=== PATIENT | female | born 1945 | race Caucasian/White ===

== ENCOUNTER 2024-02-03 10:40 | Emergency (ER) | payer MEDICARE, OTHER, SELFPAY ==
[2024-02-03 10:45] VITALS: BP 220/112; PULSE 65; RESP 16; TEMP 36.2; O2SAT 98; BMI 23.3
--- NOTE | 2024-02-03 11:42 | ED_ITS ---
HPI - General Adult General Chief complaint: Hypertension Stated complaint: High BP, dark spot under R eye Time Seen by Provider: 02/03/24 11:09 History of Present Illness HPI narrative: This 78-year-old female comes in with concern about elevated blood pressure. She is on 3 antihypertensive medications and her atenolol was increased 4 5 months ago but she began taking the increased dose just a couple months ago. Despite that she has had more elevated blood pressure in the 150-160 range for systolic value. She comes into the ER today because she awoke with some anxiety last night and noted that she had some bruising below her right eye. She does not report any injury event and is not on any anticoagulants. She does not have any other complaints. She did move from [facility] here about 4 5 months ago and she states that her stress level has increased and she thinks this may be part of why her blood pressure has been more elevated. She does not report any chest pain or and. She does have sinus symptoms that are chronic and allergy related. Related Data Home Medications Medication Instructions Recorded Confirmed atenolol 50 mg tablet 50 mg PO DAILY 02/03/24 02/03/24 hydrochlorothiazide 02/03/24 levothyroxine 75 mcg tablet 75 mcg PO DAILY 02/03/24 02/03/24 (Euthyrox) lisinopril 20 mg tablet 10 mg PO DAILY 02/03/24 02/03/24 loratadine 10 mg tablet (Claritin) 10 mg PO DAILY 02/03/24 02/03/24 omeprazole 40 mg capsule,delayed 40 mg PO DAILY 02/03/24 02/03/24 release Previous Rx's Medication Instructions Recorded amlodipine 10 mg tablet 10 mg PO DAILY #30 tabs 02/03/24 methylprednisolone 4 mg tablets in See Rx Instructions PO .COMPLEX 02/03/24 a dose pack (Medrol (Jalen)) #21 ea Allergies Allergy/AdvReac Type Severity Reaction Status Date / Time No Known Drug Allergies Allergy Verified 02/03/24 10:55 Review of Systems Status of ROS: Reports: 10 or more systems reviewed and unremarkable except as noted in History and below Narrative: Constitutional: No fevers, no weight gain or loss. Eyes: No discharge. No vision changes. HENT: No congestion, no sore throat, no ear pain. Cardiovascular: No chest pain, no palpitations. Respiratory: No shortness of breath, no wheezes, no cough. Gastrointestinal: No abdominal pain, no vomiting, no diarrhea. Genitourinary: No dysuria, no hematuria. Musculoskeletal: Normal range of motion. Skin: No rashes, no pruritis. Neurological: No dizziness, weakness, sensory change, speech change. Endo/Heme/Allergies: No bruising or bleeding. No polydipsia. Pysch: no suicidality, no anxiety, no insomnia. All other systems reviewed and are negative. PFSH PFSH Social History Smoking Status: Never smoker How often do you have a drink containing alcohol: never AUDIT-C Alcohol total score: 0 Non-prescribed substance use: denies use Exam Narrative: Exam Narrative: Constitutional: Well-developed, well-nourished, no acute distress. HEENT: Normocephalic. Small bruising below the right eye with no sign of abrasion or laceration. Neck: Normal range of motion. Nontender. Supple. Heart: Regular. No murmurs. Normal rate. Intact distal pulses. Lungs: Clear to auscultation. No chest discomfort. No wheezes, rhonchi, or rales. Abdomen: Normal bowel sounds. Nontender. No rebound tenderness. Genitalia: Deferred. Back: No midline tenderness. Normal range of motion. Extremities: Normal range of motion. No injury. Skin: Intact. No rash. Warm. No erythema or pallor. Neurologic: No altered sensation. No weakness. Alert and oriented. Psychiatric: No suicidality. No anxiety or depression. No insomnia. Nursing notes and vitals signs are reviewed. Const: Vital Signs, click to edit/add: Vital Signs - 24 hr 02/03/24 10:45 Temperature 97.2 F L Pulse Rate [Pulse Oximeter] 65 Respiratory Rate 16 Blood Pressure [Ri ght Upper Arm] 220/112 H Pulse Oximetry 98 Oxygen Delivery Me thod Room Air Course Vital Signs Vital signs: Initial Vital Signs Temperature 97.2 F L 02/03/24 10:45 Temperature Source Temporal Artery Scan 02/03/24 10:45 Pulse Rate 65 02/03/24 10:45 Respiratory Rate 16 02/03/24 10:45 Blood Pressure 220/112 H 02/03/24 10:45 Blood Pressure Mean 148 H 02/03/24 10:45 Blood Pressure Position Supine 02/03/24 10:45 Pulse Oximetry 98 02/03/24 10:45 Oxygen Delivery Method Room Air 02/03/24 10:45 Vital Signs Temperature 97.2 F L 02/03/24 10:45 Pulse Rate 65 02/03/24 10:45 Respiratory Rate 16 02/03/24 10:45 Blood Pressure 220/112 H 02/03/24 10:45 Pulse Oximetry 98 02/03/24 10:45 Oxygen Delivery Method Room Air 02/03/24 10:45 Temperature 97.2 F L 02/03/24 10:45 Pulse Rate 65 02/03/24 10:45 Respiratory Rate 16 02/03/24 10:45 Blood Pressure 220/112 H 02/03/24 10:45 Pulse Oximetry 98 02/03/24 10:45 Oxygen Delivery Method Room Air 02/03/24 10:45 Medical Decision Making MDM Narrative Medical decision making narrative: The primary reason for this patient's visit was her blood pressure readings which have been somewhat elevated over the past several months. She also has some chronic sinus symptoms. I did discuss lab and imaging options with the patient but indicated blood pressure is best evaluated by simply checking it is results with evidence acquired over more than a couple weeks when a person feels normal. She does have persistently elevated blood pressure over the past several months by her report. I did review her current medications and recommended adding Norvasc. I did state that blood pressure is best managed by her primary physician and we typically do not step in in manage or prescribed blood pressure medicines here. The patient did receive of the starting dose of Norvasc and will follow up with her primary physician. I also provided a prescription for Medrol Dosepak and recommended over the counter use of nasal steroid sprays and antihistamines for sinus symptoms. Discharge Plan Discharge Clinical Impression: Hypertension, Chronic sinusitis Patient Disposition: Home, Self-Care Condition: Stable Additional Instructions: Take medication as prescribed. Follow up with MD or return if worsening symptoms happen. Prescriptions: New methylprednisolone [Medrol (Jalen)] 4 mg tablets,dose pack See Rx Instructions .ROUTE .COMPLEX Qty: 21 0RF Rx Instructions: orally per package directions amlodipine 10 mg tablet 10 mg PO DAILY Qty: 30 2RF No Action atenolol 50 mg tablet 50 mg PO DAILY lisinopril 20 mg tablet 10 mg PO DAILY hydrochlorothiazide loratadine [Claritin] 10 mg tablet 10 mg PO DAILY levothyroxine [Euthyrox] 75 mcg tablet 75 mcg PO DAILY omeprazole 40 mg capsule,delayed release(DR/EC) 40 mg PO DAILY Stand Alone Forms: [employer] Info Instructions
== END 2024-02-03 12:00 | disposition home or self-care (01) ==
PROVIDERS: Emergency Provider Emergency Medicine Emergency Medical Services; PCP Family Medicine
DX: I10 Essential (primary) hypertension (principal); J32.9 Chronic sinusitis, unspecified
CPT/HCPCS: 99284

== ENCOUNTER 2024-10-18 19:29 | Inpatient (IN) | payer MEDICARE, OTHER, SELFPAY ==
[2024-10-18] VITALS (11 sets, daily range): BP systolic 155–179; BP diastolic 104–115; PULSE 76–85; RESP 16–18; TEMP 36.5–36.6; O2SAT 94–98; BMI 22.4; BMI 22.8
--- NOTE | 2024-10-18 19:55 | ED_ITS ---
HPI - General Adult General Time Seen by Provider: 19:55 Date Seen: 10/18/24 Chief complaint: Nausea/Vomiting Stated complaint: Covid+, vomiting, lethargy Time Seen by Provider: 10/18/24 19:51 Source: patient, family and RN notes reviewed Mode of arrival: ambulatory Limitations: no limitations History of Present Illness HPI narrative: This patient is ambulatory into the ED in presents with her spouse with concern of vomiting. He states in all is years of marriage she has never seen her vomit. She has had nausea and vomiting today, had about 5 episodes of vomiting per his report. She denies any abdominal pain. She has had no diarrhea. Her was sick with an upper respiratory illness starting Wednesday about 9 days ago. Patient started with some upper respiratory symptoms on Wednesday night or morning. She is just been extremely tired and weak, sleeping most of the time. She is still coughing but no chest pain or shortness of breath. She has no abdominal pain. Nausea and vomiting started today. She really has not been taking in much as far as orals, appetite has been really diminished and not eating. They both tested for COVID on Wednesday and both were positive. She had a tele health visit with a physician at [place] on Wednesday. Due to the length of her symptoms, her blood pressure medicines, was decided that she should not start Paxlovid. Her has recovered, he is concerned that she is not feeling better yet. They have both had COVID vaccinations. Neither has had COVID prior to this that they are aware of. Related Data Home Medications ?Medication ?Instructions ?Recorded ?Confirmed atenolol 50 mg tablet 50 mg PO DAILY 02/03/24 10/18/24 hydrochlorothiazide 02/03/24 levothyroxine 75 mcg tablet 75 mcg PO DAILY 02/03/24 10/18/24 (Euthyrox) lisinopril 20 mg tablet 10 mg PO DAILY 02/03/24 10/18/24 loratadine 10 mg tablet (Claritin) 10 mg PO DAILY 02/03/24 10/18/24 omeprazole 40 mg capsule,delayed 40 mg PO DAILY 02/03/24 10/18/24 release Previous Rx's ?Medication ?Instructions ?Recorded amlodipine 10 mg tablet 10 mg PO DAILY #30 tabs 02/03/24 Allergies Allergy/AdvReac Type Severity Reaction Status Date / Time No Known Drug Allergies Allergy Verified 10/18/24 19:50 Review of Systems Status of ROS: Reports: 6 or more systems reviewed and unremarkable except as noted in History and below PFS PFS Social History Smoking Status: Never smoker Do you use any of these nicotine containing products: None Second hand tobacco smoke exposure: No How often do you have a drink containing alcohol: never AUDIT-C Alcohol total score: 0 Non-prescribed substance use: denies use Exam Const: Vital Signs, click to edit/add: Vital Signs - 24 hr 10/18/24 19:42 10/18/24 19:55 10/18/24 20:00 Temperature 97.7 F Pulse Rate 83 81 Pulse Rate [Pulse Oximeter] 85 Respiratory Rate 16 Blood Pressure Blood Pressure [Ri ght Upper Arm] 176/111 H Pulse Oximetry 94 95 95 Oxygen Delivery Me thod Room Air Room Air 10/18/24 20:03 10/18/24 20:03 10/18/24 20:15 Temperature Pulse Rate 76 85 Pulse Rate [Pulse Oximeter] Respiratory Rate Blood Pressure 155/115 H Blood Pressure [Ri ght Upper Arm] Pulse Oximetry 94 94 95 Oxygen Delivery Me thod 10/18/24 20:32 10/18/24 21:02 Temperature Pulse Rate Pulse Rate [Pulse Oximeter] Respiratory Rate Blood Pressure 178/107 H 179/104 H Blood Pressure [Ri ght Upper Arm] Pulse Oximetry Oxygen Delivery Me thod This 79-year-old female is alert, interactive, no apparent distress. She is lying in the bed in exam room 1. She looks like she does not feel well but is able to speak in complete sentences, no tachypnea. She is oxygenating 96-97% when I am in with her with a good waveform. Sclera clear, conjugate gaze. Mask was taken down, lips are normal, not cracked or dry, tongue is maybe slightly dry but still has some wished her to the mucous membranes. Neck is supple, no adenopathy or masses. She is able to sit up, lungs are clear, good air entry, no wheezing or crackles. CV regular rate and rhythm, no murmur, normal S1-S2. Abdomen is absolutely soft, nondistended, nontender, no organomegaly. Bowel sounds are heard but overall seem mildly distant. She absolutely has no abdominal tenderness on evaluation. Documenting provider has reviewed patient's vital signs: yes Course Course ED Course: Discussed with patient and her that COVID certainly can have GI symptoms. She may have a little prolonged course or more active course as she potentially is not had COVID before. She has no abdominal pain in do think the nausea and vomiting reflect COVID infection. She is not hypoxic, does not require steroids. We will start some normal saline, give her 4 mg IV Zofran to see how she tolerates this. Will get a portable chest x-ray to ensure that there is no evidence of any COVID pneumonia developing. I do not think she requires abdominal imaging nor is it indicated given her benign examination. Will get labs and electrolytes just to ensure stability. It is possible she could go home with oral Zofran to watch over the next day or 2. Will see where her electrolytes are and how she does while she is here. Reevaluation(s) Time of Reevaluation #1: 20:58 Reevaluation #1: Contacted lab as the lactate was technically in without any value. She had critical levels of her sodium and potassium and thus lactate will not register per the machine. Her prelim sodium is 114 and potassium is 2.7. I have ordered cardiac monitoring, EKG, lab add on for magnesium. She did receive 500 mL normal saline, will order some IV potassium. Will talk to our hospitalist. I see she is on hydrochlorothiazide and she is probably had ongoing losses from the hydrochlorothiazide with poor oral intake and than subsequent losses with her vomiting today. Time of Reevaluation #2: 21:12 Reevaluation #2: Did review with patient and her the low potassium and sodium. She is being hooked up to the dope and fabric worker, I do have her EKG. She actually on further discussion has only thrown up twice, not 5 times, IA believe he said 5 times but maybe he was talking about being ill for 5 days. She actually has only thrown up twice. She definitely has had poor oral intake and basically has been only taking in fluids with water. We discussed that that does not replace electrolytes, she has been taking her hydrochlorothiazide. She did ask if I would look at her right ear, has been bothering her through this, feels full. She has some fluid but no active evidence of otitis media at this time. We did discuss if she has increasing pain in the ear, to let someone know so that they can look at it again. Consultations Consultation #1: Have spoken with the hospitalist Dr. Winters. Patient will go in the unit due to her low sodium. Did report that I have not ordered IV potassium, she stated she would take care of all of that and is ready to accept the patient. We will make her admission per her recommendation. Need to update patient and her . Time: 21:10 Vital Signs Vital signs: Initial Vital Signs Temperature 97.7 F 10/18/24 19:42 Temperature Source Temporal Artery Scan 10/18/24 19:42 Pulse Rate 85 10/18/24 19:42 Respiratory Rate 16 10/18/24 19:42 Blood Pressure 176/111 H 10/18/24 19:42 Blood Pressure Mean 132 H 10/18/24 19:42 Blood Pressure Position Supine 10/18/24 19:42 Pulse Oximetry 94 10/18/24 19:42 Oxygen Delivery Method Room Air 10/18/24 19:42 Vital Signs Temperature 97.7 F 10/18/24 19:42 Pulse Rate 85 10/18/24 19:42 Respiratory Rate 16 10/18/24 19:42 Blood Pressure 176/111 H 10/18/24 19:42 Pulse Oximetry 94 10/18/24 19:42 Oxygen Delivery Method Room Air 10/18/24 19:42 Temperature 97.7 F 10/18/24 19:42 Pulse Rate 85 10/18/24 20:15 Respiratory Rate 16 10/18/24 19:42 Blood Pressure 179/104 H 10/18/24 21:02 Pulse Oximetry 95 10/18/24 20:15 Oxygen Delivery Method Room Air 10/18/24 19:55 Medications Administered Medications: Discontinued Medications Generic Name Dose Route Start Last Admin Trade Name Freq PRN Reason Stop Dose Admin Sodium Chloride 500 mls @ 500 mls/hr 10/18/24 20:04 10/18/24 20:27 0.9 % Sodium Chloride 500 Ml IV 10/18/24 21:03 500 mls/hr .Q1H ONE Administration Ondansetron HCl 4 mg 10/18/24 20:04 10/18/24 20:27 Ondansetron 2 Mg/Ml Inj IVP 10/18/24 20:05 4 mg ONCE ONE Administration Medical Decision Making Lab Data Lab results reviewed: Yes I reviewed the patient's lab results Labs: Lab Results 10/18/24 10/18/24 10/18/24 Range/Units 20:04 20:30 20:58 WBC 3.45 L (4.50-11.00) K/uL RBC 5.12 (4.00-5.20) m/uL Hgb 14.9 (12.0-16.0) gm/dL Hct 42.6 (33.0-51.0) % MCV 83 (80-100) fL MCH 29 (26-34) pg MCHC 35 (32-36) gm/dL RDW Coeff of Albert 11.5 (11.5-15.5) % Plt Count 235 (140-440) K/uL Neut % (Auto) 74.2 H (42.0-72.0) % Lymph % (Auto) 16.8 L (20-44) % [place] % (Auto) 8.4 (0.0-11.0) % Eos % (Auto) 0.3 (0.0-7.0) % Baso % (Auto) 0.0 (0.0-3.0) % Neut # (Auto) 2.60 (1.7-7.0) K/uL Lymph # (Auto) 0.60 L (0.90-2.90) K/uL [place] # (Auto) 0.30 (0.00-0.90) K/UL Eos # (Auto) 0.00 (0.00-0.50) K/uL Baso # (Auto) 0.00 (0.00-0.30) K/uL Abs Immat Gran (auto) 0.00 (0.00-0.30) K/uL Imm/Tot Granulo (auto) 0.3 % Sodium 114 L* (135-149) mmol/L Potassium 2.7 L* (3.6-5.1) mmol/L Chloride 72 L (96-114) mmol/L Carbon Dioxide 33 H (20-32) mmol/L Anion Gap 9 (7-15) mEq/L BUN 10 (7-30) mg/dL Creatinine 0.5 (0.5-1.5) mg/dL Estimated Creat Clear 44.10 Estimated GFR 97 ml/min Glucose 154 H (60-115) mg/dL Lactate (0.5-1.9) mmol/L Calcium 9.0 (8.4-10.6) mg/dL Total Bilirubin 0.7 (0.1-1.5) mg/dL AST 37 H (12-35) U/L ALT 30 (4-35) U/L Alkaline Phosphatase 70 (40-150) U/L C-Reactive Protein 0.9 (0.5-1.0) mg/dL Total Protein 8.0 (6.0-8.3) g/dL Albumin 4.6 (3.3-5.0) g/dL Lab Acknowledgement Test Added POC Troponin I 0.01 (0.01-0.04) ng/ml Imaging Data Chest x-ray: Attestation: I have reviewed the pertinent imaging results. My impression: I do not see any evidence of COVID pneumonia nor any consolidative changes on her chest x-ray on my preliminary review. Radiologist's impression: Patient: KATI MCLALISTER Facility:?[facility] Patient ID:?[id number] Site Patient ID:?[id number]. Site :?[id number] Study:?XRay-Chest PCXR-10/18/2024 8:19:28 PM Ordering Physician:?Gladis Garland Final Report: INDICATION: Weakness. Dyspnea. TECHNIQUE: Chest radiograph, 1 view. COMPARISON: None. FINDINGS: Cardiovascular/Mediastinum: Normal heart size. Unremarkable. Lungs: No focal consolidation. Linear band like opacification of the lungs bilaterally, likely subsegmental atelectasis and/or scarring. Airways: Trachea remains midline. Pleura: No pleural effusions or pneumothorax. Bones: No acute osseous abnormalities. Upper abdomen: Unremarkable. IMPRESSION: No acute cardiopulmonary process. Dictated by Jason Garcia MD @ 10/18/2024 8:47:29 PM (Electronic Signature) ECG Data Attestation: I personally reviewed and interpreted this ECG as follows: (Sinus rhythm, 80 beats per minute, premature atrial complex seen. No evidence of any ischemia, no significant changes of ST segments or T-waves.) Discharge Plan Discharge Clinical Impression: COVID-19, Acute hyponatremia, Acute hypokalemia Nausea and vomiting Qualifiers: Vomiting type: unspecified Qualified Code(s): R11.2 - Nausea with vomiting, unspecified Patient Disposition: Admitted As Inpatient Prescriptions: No Action atenolol 50 mg tablet 50 mg PO DAILY lisinopril 20 mg tablet 10 mg PO DAILY hydrochlorothiazide loratadine [Claritin] 10 mg tablet 10 mg PO DAILY levothyroxine [Euthyrox] 75 mcg tablet 75 mcg PO DAILY omeprazole 40 mg capsule,delayed release(DR/EC) 40 mg PO DAILY amlodipine 10 mg tablet 10 mg PO DAILY Qty: 30 2RF Follow Up/Referrals: Zelda Maldonado MD [Primary Care Provider] -
--- NOTE | 2024-10-18 20:03 | CRLHL7_ITS ---
For Patients: As a result of the Century Cures Act, medical imaging exams and procedure reports are released immediately into your electronic medical record. You may view this report before your referring provider. If you have questions, please contact your health care provider. INDICATION: Weakness. Dyspnea. TECHNIQUE: Chest radiograph, 1 view. COMPARISON: None. FINDINGS: Cardiovascular/Mediastinum: Normal heart size. Unremarkable. Lungs: No focal consolidation. Linear band like opacification of the lungs bilaterally, likely subsegmental atelectasis and/or scarring. Airways: Trachea remains midline. Pleura: No pleural effusions or pneumothorax. Bones: No acute osseous abnormalities. Upper abdomen: Unremarkable. IMPRESSION: No acute cardiopulmonary process. Dictated by aJson Garcia MD @ 10/18/2024 8:47:29 PM (Electronically Signed)
[2024-10-18] MEDS: 0.9 % SODIUM CHLORIDE 500 ML 500 ML IV (20:27)
[2024-10-18] MEDS: ONDANSETRON 2 MG/ML inj 4 MG IVP (20:27)
[2024-10-18 20:38] LABS: Eosinophils Percent Auto 0.3 % (0.0-7.0); Hematocrit 42.6 % (33.0-51.0); Hemoglobin* 14.9 gm/dL (12.0-16.0); Immature Granulocytes Pct Auto 0.3 %; Lymphocytes Percent Auto 16.8 % (20-44); Mean Corpuscular HGB Conc 35 gm/dL (32-36); Mean Corpuscular Hemoglobin 29 pg (26-34); Mean Corpuscular Volume 83 fL (80-100); Monocytes Percent Auto 8.4 % (0.0-11.0); Neutrophils Percent Auto 74.2 % (42.0-72.0); Platelet Count* 235 K/uL (140-440); RDW Coefficient of Variation % 11.5 % (11.5-15.5); Red Blood Count 5.12 m/uL (4.00-5.20); White Blood Count* 3.45 K/uL (4.50-11.00)
[2024-10-18 20:40] LABS: Slide Review Reflex No
[2024-10-18 20:45] LABS: Troponin, Point-of-Care* 0.01 ng/ml (0.01-0.04)
[2024-10-18 20:52] LABS: Albumin* 4.6 g/dL (3.3-5.0); Chloride* 72 mmol/L (96-114)
[2024-10-18 20:55] LABS: Alkaline Phosphatase* 70 U/L (40-150); Anion Gap 9 mEq/L (7-15); Aspartate Amino Transferase* 37 U/L (12-35); Bilirubin Total* 0.7 mg/dL (0.1-1.5); Carbon Dioxide* 33 mmol/L (20-32); Creatinine* 0.5 mg/dL (0.5-1.5); Estimated Glomerular Filt Rate 97 ml/min
[2024-10-18 20:56] LABS: Alanine Aminotransferase* 30 U/L (4-35); Blood Urea Nitrogen* 10 mg/dL (7-30); Glucose* 154 mg/dL (60-115)
[2024-10-18 20:58] LABS: C Reactive Protein* 0.9 mg/dL (0.5-1.0); Potassium* 2.7 mmol/L (3.6-5.1); Sodium* 114 mmol/L (135-149)
[2024-10-18 21:15] LABS: Magnesium* 1.9 mg/dL (1.5-2.6)
--- NOTE | 2024-10-18 21:29 | P.IMHP_ITS ---
Hospitalist- H&P: HPI History of Present Illness Date Seen: 10/18/24 Chief complaint: Covid+, vomiting, lethargy Narrative: ADMISSION HISTORY AND PHYSICAL - HOSPITALIST Chief Complaint: Weakness, nausea vomiting, positive COVID HPI: This is a 79-year-old white female with a longstanding history essential hypertension on a 4 drug regimen, hypothyroidism, GERD, seasonal allergies and hearing loss. She presents with a 7 day history of cough, weakness, nausea, poor oral intake and vomiting. Her had a mild illness with similar features the week prior. They tested positive for COVID-19 4 days prior to admission. She had a video appointment on October 16 with her [facility] provider and paxlovid was not recommended. She continued to feel weak and the vomiting seemed to be getting worse and her weakness really became severe today and she was brought in by her to the ED. she would now be day 8 of her COVID illness. She is having a mild cough but no significant dyspnea. No fever. No abdominal pain. No diarrhea. No delirium. No headaches. She is COVID, RSV, flu vaccinated with most recent vaccines. She has never been positive for Covid. In the ER we found her sodium to be 114, her potassium was 2.7. Her absolute lymphocyte count is 580. She is hypertensive. ER COURSE: labs, EKG, chest x-ray. Fluid bolus. Zofran. CODE STATUS: FULL CODE EMERGENCY CONTACT PLAN: Pritesh Cortes Rel To Pat Cell I've updated the PFSH, medications and allergies in the [facility] tabs. INVESTIGATIONS: LABS/MICRO/ECG/IMAGING HYPERTENSIVE AT 179/104. PULSE 81. REST PER 16. AFEBRILE. 95% ON ROOM AIR. CBC reflects a mildly depressed white blood cell count of 3.45. The her hemoglobin is mildly hemoconcentrated at 14.9. Her platelet count is 235. Her absolute neutrophil count is 580. D-dimer 0.31 PH 7.48. PCO2 47. Bicarb elevated at 35 Sodium is 114 Potassium 2.7 , normal magnesium Chloride 72 Elevated mildly bicarb at 33. Normal renal function. GFR 97. Glucose 154. Lactate cannot be calculated. Mild bump in her AST of 37 otherwise her LFTs are normal. Her lactate dehydrogenase is normal. Her troponin is undetectable. Her CRP is 0.9 her TSH is pending Her COVID antigen and PCR are positive. Negative RSV and flu. Chest x-ray is negative. EKG shows sinus rhythm with PACs. REVIEW OF SYSTEMS: 12-point ROS completed with patient and negative unless otherwise stated in HPI or below. PHYSICAL EXAM: CONSTITUTIONAL: Conversive, good historian. A/O. Knows setting and context. VITAL SIGNS: see record. HEENT: Normocephalic, atraumatic. PERRL, EOMI, conjunctivae pink, no scleral icterus. Ears and nose externally normal. Pharynx normal. NECK: No JVD. No carotid bruit, no thyromegaly, no adenopathy. CHEST: Clear to auscultation bilaterally HEART: S1 and S2 normal. No harsh murmurs. No edema MUSCULOSKELETAL: No gross joint deformity or swelling. NEURO: Cranial nerves intact. Grossly intact. No asymmetric findings. SKIN: No rashes, petechiae, concerning changes PSYCHIATRIC: Euthymic. ADMIT TO MEDSURG: CCU DVT: Lovenox GI: PO intake, IV and PO PPI Time spent: Today I spent 75 minutes seeing the patient, discussing the patient with ER staff, reviewing [facility] and EPIC notes/diagnostics, discussing the care plan with our care time that includes social work, PT/OT, pharmacy, RT, long-term and documenting my impressions and plan in the medical record. [facility] Medical History (Updated 10/18/24 @ 23:31 by Maia Winters MD) Seasonal allergic rhinitis ?J30.2 - Other seasonal allergic rhinitis (ICD-10) GERD (gastroesophageal reflux disease) ?K21.9 - Gastro-esophageal reflux disease without esophagitis (ICD-10) Essential hypertension ?I10 - Essential (primary) hypertension (ICD-10) Hypothyroidism ?E03.9 - Hypothyroidism, unspecified (ICD-10) Social History Smoking Status: Never smoker Do you use any of these nicotine containing products: None Second hand tobacco smoke exposure: No How often do you have a drink containing alcohol: never AUDIT-C Alcohol total score: 0 Non-prescribed substance use: denies use Meds Home Medications and Allergies Home Medications ?Medication ?Instructions ?Recorded ?Confirmed ?Type atenolol 50 mg tablet 50 mg PO DAILY 02/03/24 10/18/24 History hydrochlorothiazide 02/03/24 History levothyroxine 75 mcg tablet 75 mcg PO DAILY 02/03/24 10/18/24 History (Euthyrox) lisinopril 20 mg tablet 10 mg PO DAILY 02/03/24 10/18/24 History loratadine 10 mg tablet (Claritin) 10 mg PO DAILY 02/03/24 10/18/24 History omeprazole 40 mg capsule,delayed 40 mg PO DAILY 02/03/24 10/18/24 History release Allergies Allergy/AdvReac Type Severity Reaction Status Date / Time No Known Drug Allergies Allergy Verified 10/18/24 19:50 Exam Const: Vital Signs, click to edit/add: Vital Signs - 24 hr 10/18/24 19:42 10/18/24 19:55 10/18/24 20:00 Temperature 97.7 F Pulse Rate 83 81 Pulse Rate [Pulse Oximeter] 85 Respiratory Rate 16 Blood Pressure Blood Pressure [Ri ght Upper Arm] 176/111 H Pulse Oximetry 94 95 95 Oxygen Delivery [facility] Room Air Room Air 10/18/24 20:03 10/18/24 20:03 10/18/24 20:15 Temperature Pulse Rate 76 85 Pulse Rate [Pulse Oximeter] Respiratory Rate Blood Pressure 155/115 H Blood Pressure [Ri ght Upper Arm] Pulse Oximetry 94 94 95 Oxygen Delivery Me thod 10/18/24 20:32 10/18/24 21:02 Temperature Pulse Rate Pulse Rate [Pulse Oximeter] Respiratory Rate Blood Pressure 178/107 H 179/104 H Blood Pressure [Ri ght Upper Arm] Pulse Oximetry Oxygen Delivery [facility] Hospitalist - H&P: Result Labs Labs: Short CBC 10/18/24 Range/Units 20:30 WBC 3.45 L (4.50-11.00) K/uL Hgb 14.9 (12.0-16.0) gm/dL Hct 42.6 (33.0-51.0) % Plt Count 235 (140-440) K/uL BMP 10/18/24 20:30 Sodium 114 L* Potassium 2.7 L* Chloride 72 L Carbon Dioxide 33 H BUN 10 Creatinine 0.5 Glucose 154 H Calcium 9.0 Liver Function 10/18/24 Range/Units 20:30 Total Bilirubin 0.7 (0.1-1.5) mg/dL AST 37 H (12-35) U/L ALT 30 (4-35) U/L Alkaline Phosphatase 70 (40-150) U/L Albumin 4.6 (3.3-5.0) g/dL Assessment and Plan Assessment and plan (1) Acute COVID-19: Problem comment: -Hospital Day: 1 -Symptom onset: 10/12 -Positive test: 10/15 -supportive care, lovenox, remdesivir. curbsided pulm/crit care @ [facility] recommended Remdesivir. check for co-infection with Flu - consider treatment if warranted -lab features for severe covid: New no elevations in D-dimer, CRP, LDH, troponin or ferritin. There is a decrease and her absolute lymphocyte count. And while not listed the severe hyponatremia is peripherally related to her symptoms Status: Acute (2) Acute hyponatremia: Problem comment: -likely pre renal. I have ordered a FENA. Fluid bolus and maintenance of normal saline overnight. Follow BMP Q 2-4 hours. Observe and monitor for rapid rise. -fluid restriction -I did not order salt tabs but protein supplementation with shakes Status: Acute (3) Acute hypokalemia: Problem comment: IV replacement and tolerating oral and then on replaced Status: Acute (4) Hypothyroidism: Problem comment: Continue home levothyroxine Status: Acute (5) Essential hypertension: Problem comment: Continue home meds with IV metoprolol as needed Status: Acute (6) GERD (gastroesophageal reflux disease): Problem comment: IV PPI tonight and then resume oral PPI morning Status: Acute (7) Seasonal allergic rhinitis: Problem comment: Continue Claritin Status: Acute
[2024-10-18 21:43] LABS: HCO3 VBG 35 mmol/L (21-28); PCO2 VBG 47 mmHG (40-50); PO2 VBG < 30.0 mmHG (25-47); pH VBG 7.48 (7.32-7.43)
[2024-10-18 21:48] LABS: Lactate Dehydrogenase* 210 U/L (120-246)
[2024-10-18 21:53] LABS: D Dimer Quantitative* 0.31 ug/ml (0.00-0.50)
[2024-10-18 22:12] LABS: Troponin I* < 0.01 ng/mL (0.01-0.04)
[2024-10-18 22:33] LABS: SARS Antigen* POSITIVE (Negative)
[2024-10-18 22:45] LABS: PCR FLU A Negative PCR FLU A (Negative); PCR FLU B Negative PCR FLU B (Negative); PCR RSV Negative PCR RSV (Negative); SARS PCR* POSITIVE SARS-CoV-2 (Negative)
[2024-10-18] MEDS: METOPROLOL TARTRATE 1 MG/ML inj 5 MG IVP (22:47)
[2024-10-18] MEDS: PANTOPRAZOLE SODIUM 40 MG INJ IVP (22:47)
[2024-10-18] MEDS: 0.9 % SODIUM CHLORIDE 1000 ml 1,000 ML IV (22:55)
[2024-10-18] MEDS: POTASSIUM CHLORIDE 10 MEQ/100 ML PIGGYBACK 100 MEQ IVPB (23:07)
[2024-10-18 23:25] LABS: Chloride* 76 mmol/L (96-114)
[2024-10-18 23:28] LABS: Anion Gap 6 mEq/L (7-15); Carbon Dioxide* 31 mmol/L (20-32); Creatinine* 0.5 mg/dL (0.5-1.5); Estimated Glomerular Filt Rate 97 ml/min
[2024-10-18 23:29] LABS: Blood Urea Nitrogen* 9 mg/dL (7-30); Calcium* 8.4 mg/dL (8.4-10.6); Glucose* 129 mg/dL (60-115)
[2024-10-18 23:31] LABS: Appearance Urine Clear (Clear); Bilirubin Urine Negative (Negative); Blood Urine Negative (Negative); Color Urine Yellow (Yellow); Glucose Urine Negative (Negative); Ketones Urine 2+ (Negative); Leukocyte Esterase Urine Trace (Negative); Nitrite Urine Negative (Negative); Protein Urine Negative (Negative); Specific Gravity Urine 1.015 (1.000-1.030); Urobilinogen Urine 0.2 (0.2-1.0); pH Urine 7.5 (5.0-8.5)
[2024-10-18 23:34] LABS: Sodium* 113 mmol/L (135-149)
[2024-10-18 23:35] LABS: Potassium* 2.7 mmol/L (3.6-5.1)
[2024-10-18 23:42] LABS: Bacteria Urine Few; RBC Urine 0-2 (0-2); Sodium Urine Random* 59; Squamous Epithelial Cell Urine Few (None-Few); WBC Urine 0-2 (0-5)
[2024-10-19] VITALS (24 sets, daily range): BP systolic 113–174; BP diastolic 75–116; PULSE 60–73; RESP 16–18; TEMP 36.6–36.8; O2SAT 70–98; BMI 22.6
[2024-10-19] MEDS: POTASSIUM CHLORIDE 10 MEQ/100 ML PIGGYBACK 100 MEQ IVPB ×5 (00:07→09:44)
[2024-10-19] MEDS: 0.9 % SODIUM CHLORIDE 1000 ml 1,000 ML 250 ML IV (01:32)
[2024-10-19] MEDS: METOPROLOL TARTRATE 1 MG/ML inj 5 MG IVP ×4 (02:16→21:27)
[2024-10-19 03:26] LABS: Chloride* 88 mmol/L (96-114); Potassium* 3.2 mmol/L (3.6-5.1)
[2024-10-19 03:29] LABS: Anion Gap 5 mEq/L (7-15); Blood Urea Nitrogen* 8 mg/dL (7-30); Calcium* 7.9 mg/dL (8.4-10.6); Carbon Dioxide* 28 mmol/L (20-32); Creatinine* 0.4 mg/dL (0.5-1.5); Estimated Glomerular Filt Rate 102 ml/min; Glucose* 114 mg/dL (60-115)
[2024-10-19 03:31] LABS: Sodium* 121 mmol/L (135-149)
[2024-10-19] MEDS: LEVOTHYROXINE 75 MCG TABLET PO (06:26)
[2024-10-19 06:37] LABS: HCO3 VBG 29 mmol/L (21-28); Lactate* 0.8 mmol/L (0.5-1.9); PCO2 VBG 40 mmHG (40-50); PO2 VBG 50.2 mmHG (25-47); pH VBG 7.471 (7.32-7.43)
[2024-10-19 06:43] LABS: Eosinophils Percent Auto 0.5 % (0.0-7.0); Hematocrit 36.8 % (33.0-51.0); Hemoglobin* 12.8 gm/dL (12.0-16.0); Lymphocytes Percent Auto 30.3 % (20-44); Mean Corpuscular HGB Conc 35 gm/dL (32-36); Mean Corpuscular Hemoglobin 29 pg (26-34); Mean Corpuscular Volume 85 fL (80-100); Monocytes Percent Auto 14.4 % (0.0-11.0); Neutrophils Percent Auto 54.8 % (42.0-72.0); Platelet Count* 223 K/uL (140-440); RDW Coefficient of Variation % 11.5 % (11.5-15.5); Red Blood Count 4.35 m/uL (4.00-5.20); White Blood Count* 3.89 K/uL (4.50-11.00)
[2024-10-19 06:54] LABS: Slide Review Reflex No
--- NOTE | 2024-10-19 06:54 | PC.NURSE ---
Pleasant and cooperative. Tolerating regular diet, ate Jell-o & drank some of an ensure, compliant with 1800mL fluid restriction. SBA with IV pole. First dose remdesivir given. K+ 2.7 in ED, 4 bumps of IV K+ given - after completion K+ increased to 3.2. 500mL NS bolus given on m/s, followed by NS running at 250mL/hr. Critical lab value of Na 121 received, paged sandeep at 0330 ,0400, & 0430. Sandeep returned the call at 0446, gave verbal order to pause fluids. RN had already stopped IV NS at 0335, nurse discretion. made sure AM labs were in. no new orders received. O2 sats dipped 3-4 times into the 70s while asleep - within seconds pt rebounded back up into the 90s. Elevated BPs, scheduled IVP metoprolol given, BP at end of shift 122/78 & HR 60 - ad copy writer held IVP metoprolol.
[2024-10-19 07:10] LABS: Albumin* 3.4 g/dL (3.3-5.0); Chloride* 90 mmol/L (96-114)
[2024-10-19 07:13] LABS: Creatinine* 0.5 mg/dL (0.5-1.5); Estimated Glomerular Filt Rate 97 ml/min
[2024-10-19 07:14] LABS: Alanine Aminotransferase* 24 U/L (4-35); Alkaline Phosphatase* 50 U/L (40-150); Anion Gap 4 mEq/L (7-15); Aspartate Amino Transferase* 30 U/L (12-35); Bilirubin Total* 0.2 mg/dL (0.1-1.5); Blood Urea Nitrogen* 10 mg/dL (7-30); Calcium* 8.1 mg/dL (8.4-10.6); Carbon Dioxide* 28 mmol/L (20-32); Glucose* 93 mg/dL (60-115); Total Protein* 6.2 g/dL (6.0-8.3)
[2024-10-19 07:16] LABS: C Reactive Protein* 0.8 mg/dL (0.5-1.0)
[2024-10-19 07:26] LABS: Sodium* 122 mmol/L (135-149)
[2024-10-19] MEDS: 5 % DEXTROSE/0.45% SOD CHLOR 1,000 ML 125 ML IV (08:25)
[2024-10-19] MEDS: POTASSIUM CHLORIDE 10 MEQ CAPSULE ER 40 MEQ PO (08:25)
[2024-10-19] MEDS: SODIUM CHLORIDE 0.9 % (FLUSH) 10 ML SYRINGE 5 ML IVF ×2 (08:32→15:08)
[2024-10-19] MEDS: OMEPRAZOLE 20 MG CAPSULE DR 40 MG PO (08:32)
[2024-10-19] MEDS: LORATADINE 10 MG TABLET PO (08:32)
[2024-10-19] MEDS: atenoloL 25 MG TABLET 12.5 MG PO (08:33)
[2024-10-19 10:22] LABS: Sodium* 123 mmol/L (135-149)
[2024-10-19] MEDS: 5 % DEXTROSE/0.45% SOD CHLOR 1,000 ML 250 ML IV ×2 (10:27→13:30)
--- NOTE | 2024-10-19 11:42 | PM.IMPN1 ---
Progress Note: A&P Assessment and plan (1) Acute COVID-19: Problem details: -Hospital Day: 2 -Symptom onset: 10/12 -Positive test: 10/15 -supportive care, lovenox, remdesivir. curbsided pulm/crit care @ [facility] recommended Remdesivir. check for co-infection with Flu - influenza/RSV negative -lab features for severe covid: New no elevations in D-dimer, CRP, LDH, troponin or ferritin. There is a decrease and her absolute lymphocyte count. And while not listed the severe hyponatremia is peripherally related to her symptoms 10/19 symptomatically improving. Afebrile. No hypoxia. Will need to remain in hospital for further management hyponatremia and hypokalemia Status: Acute (2) Acute hyponatremia: Problem details: -likely pre renal. Had been vomiting then replenished with clear water prior to admission. FENA ordered. Fluid bolus and maintenance of normal saline overnight. Follow BMP Q 2-4 hours. Observe and monitor for rapid rise. -fluid restriction -I did not order salt tabs but protein supplementation with shakes 10/19 rapid sodium rise from 113 to 121 overnight. Asymptomatic. Normal saline fluids discontinued. Starting D5W. Will hold off on desmopressin for now. Q3 hour sodium checks Status: Acute (3) Acute hypokalemia: Problem details: Potassium 3.0 following IV replacement. Continue with further IV replacement as well as oral replacement and recheck at 1300 Status: Acute (4) Hypothyroidism: Problem details: Continue home levothyroxine Status: Acute (5) Essential hypertension: Problem details: Continue home meds with IV metoprolol as needed Status: Acute (6) GERD (gastroesophageal reflux disease): Problem details: IV PPI tonight and then resume oral PPI morning Status: Acute (7) Seasonal allergic rhinitis: Problem details: Continue Claritin Status: Acute Plan Will continue to manage and monitor hyponatremia and hypokalemia. Discharge to home when stabilized. Time Spent With Patient Total time spent: Total time spent caring for the patient today was 45 minutes. This includes time spent for the visit reviewing the chart, time spent during the visit, time spent after the visit and documentation and planning in coordination of care. Subjective Date Seen: 10/19/24 Interval history: Patient reports feeling better this morning. Denies headache or dizziness. Denies chest pain or shortness of breath. Tolerating orals without nausea or vomiting. Sodium on admission 114 -> 113 -> 122 folloiwng administration IVF NS. This was stopped at 3:30 a.m. this morning. Have started D5 half-normal saline. Asymptomatic. Potassium remains low at 3.0 following IV supplementation. Exam Narrative: Exam Narrative: PHYSICAL EXAM General: Pleasant, conversant, NAD HEENT: Normocephalic, atraumatic, sclera white, EOMI, oral mucosa moist Cardiovascular: RRR, S1S2. No pitting edema Pulmonary: CTA bilaterally without rhonchi, rales, expiratory wheezes. No dyspnea Neurological: Alert, answering questions appropriately, cranial nerves intact, no focal findings Extremities: No gross joint deformity or swelling. AROMI. Neurovascularly intact Skin: Warm, dry. Const: Vital Signs, click to edit/add: Vital Signs - 24 hr 10/18/24 19:42 10/18/24 19:55 10/18/24 20:00 Temperature 97.7 F Pulse Rate 83 81 Pulse Rate [Pulse Oximeter] 85 Respiratory Rate 16 Blood Pressure Blood Pressure [Le ft Arm] Blood Pressure [Ri ght Upper Arm] 176/111 H Pulse Oximetry 94 95 95 Oxygen Delivery Me thod Room Air Room Air 10/18/24 20:03 10/18/24 20:03 10/18/24 20:15 Temperature Pulse Rate 76 85 Pulse Rate [Pulse Oximeter] Respiratory Rate Blood Pressure 155/115 H Blood Pressure [Le ft Arm] Blood Pressure [Ri ght Upper Arm] Pulse Oximetry 94 94 95 Oxygen Delivery Me thod 10/18/24 20:32 10/18/24 21:02 10/18/24 21:34 Temperature Pulse Rate 81 Pulse Rate [Pulse Oximeter] Respiratory Rate Blood Pressure 178/107 H 179/104 H Blood Pressure [Le ft Arm] Blood Pressure [Ri ght Upper Arm] Pulse Oximetry 95 Oxygen Delivery Me thod 10/18/24 21:45 10/18/24 22:44 10/18/24 23:49 Temperature 97.8 F Pulse Rate 81 82 Pulse Rate [Pulse Oximeter] 84 Respiratory Rate 18 Blood Pressure Blood Pressure [Le ft Arm] 175/111 H Blood Pressure [Ri ght Upper Arm] Pulse Oximetry 95 98 Oxygen Delivery Me thod Room Air 10/19/24 00:04 10/19/24 00:26 10/19/24 00:26 Temperature 98.1 F Pulse Rate Pulse Rate [Pulse Oximeter] 73 Respiratory Rate 18 18 18 Blood Pressure Blood Pressure [Le ft Arm] 174/106 H Blood Pressure [Ri ght Upper Arm] Pulse Oximetry 98 92 92 Oxygen Delivery Me thod Room Air Room Air Room Air 10/19/24 02:34 10/19/24 02:34 10/19/24 02:34 Temperature 98 F Pulse Rate 63 Pulse Rate [Pulse Oximeter] 71 71 Respiratory Rate 18 18 Blood Pressure Blood Pressure [Le ft Arm] 163/99 H Blood Pressure [Ri ght Upper Arm] Pulse Oximetry 93 Oxygen Delivery Me thod Room Air 10/19/24 04:20 10/19/24 04:21 10/19/24 05:00 Temperature Pulse Rate Pulse Rate [Pulse Oximeter] 62 61 60 Respiratory Rate 18 Blood Pressure Blood Pressure [Le ft Arm] 113/75 Blood Pressure [Ri ght Upper Arm] Pulse Oximetry 70 L 91 94 Oxygen Delivery Me thod Room Air Room Air Room Air 10/19/24 06:30 10/19/24 07:00 10/19/24 07:22 Temperature Pulse Rate 64 Pulse Rate [Pulse Oximeter] 60 Respiratory Rate 18 18 Blood Pressure Blood Pressure [Le ft Arm] 122/78 Blood Pressure [Ri ght Upper Arm] Pulse Oximetry 94 Oxygen Delivery Ma thod Room Air 10/19/24 07:43 10/19/24 07:55 10/19/24 10:00 Temperature 98.1 F Pulse Rate Pulse Rate [Pulse Oximeter] 60 66 Respiratory Rate 18 18 Blood Pressure Blood Pressure [Le ft Arm] 135/116 H 155/95 H Blood Pressure [Ri ght Upper Arm] Pulse Oximetry 96 96 96 Oxygen Delivery Ma thod Room Air Room Air Room Air 10/19/24 10:58 10/19/24 11:00 Temperature 98.1 F Pulse Rate 64 Pulse Rate [Pulse Oximeter] 62 Respiratory Rate 16 Blood Pressure Blood Pressure [Le ft Arm] 139/85 Blood Pressure [Ri ght Upper Arm] Pulse Oximetry 96 Oxygen Delivery Ma thod Room Air Labs Labs: Laboratory Results - last 24 hr 10/18/24 10/18/24 10/18/24 20:04 20:30 20:58 WBC 3.45 L RBC 5.12 Hgb 14.9 Hct 42.6 MCV 83 MCH 29 MCHC 35 RDW Coeff of Albert 11.5 Plt Count 235 Neut % (Auto) 74.2 H Lymph % (Auto) 16.8 L [place] % (Auto) 8.4 Eos % (Auto) 0.3 Baso % (Auto) 0.0 Neut # (Auto) 2.60 Lymph # (Auto) 0.60 L [place] # (Auto) 0.30 Eos # (Auto) 0.00 Baso # (Auto) 0.00 Abs Immat Gran (auto) 0.00 Imm/Tot Granulo (auto) 0.3 D-Dimer Quant (PE/DVT) 0.31 VBG pH 7.48 H VBG pCO2 47 VBG pO2 < 30.0 VBG HCO3 35 H Sodium 114 L* Potassium 2.7 L* Chloride 72 L Carbon Dioxide 33 H Anion Gap 9 BUN 10 Creatinine 0.5 Estimated Creat Clear 44.10 Estimated GFR 97 Glucose 154 H Lactate Calcium 9.0 Magnesium 1.9 Ferritin 254.0 Total Bilirubin 0.7 AST 37 H ALT 30 Alkaline Phosphatase 70 Lactate Dehydrogenase 210 Troponin I < 0.01 L C-Reactive Protein 0.9 Total Protein 8.0 Albumin 4.6 TSH 3.520 Urine Color Urine Appearance Urine pH Ur Specific [place] Urine Protein Urine Glucose (UA) Urine Ketones Urine Blood Urine Nitrite Urine Bilirubin Urine Urobilinogen Ur Leukocyte Esterase Urine RBC Urine WBC Ur Squamous Epith Cells Urine Bacteria Ur Random Sodium SARS-CoV-2 (PCR) Influenza Type A (PCR) Influenza Type B (PCR) RSV (PCR) SARS-CoV-2 Ag (Rapid) Lab Acknowledgement Test Added POC Troponin I 0.01 10/18/24 10/18/24 10/18/24 21:28 21:50 22:12 WBC RBC Hgb Hct MCV MCH MCHC RDW Coeff of Albert Plt Count Neut % (Auto) Lymph % (Auto) [place] % (Auto) Eos % (Auto) Baso % (Auto) Neut # (Auto) Lymph # (Auto) [place] # (Auto) Eos # (Auto) Baso # (Auto) Abs Immat Gran (auto) Imm/Tot Granulo (auto) D-Dimer Quant (PE/DVT) VBG pH VBG pCO2 VBG pO2 VBG HCO3 Sodium Potassium Chloride Carbon Dioxide Anion Gap BUN Creatinine Estimated Creat Clear Estimated GFR Glucose Lactate Calcium Magnesium Ferritin Total Bilirubin AST ALT Alkaline Phosphatase Lactate Dehydrogenase Troponin I C-Reactive Protein Total Protein Albumin TSH Urine Color Urine Appearance Urine pH Ur Specific [place] Urine Protein Urine Glucose (UA) Urine Ketones Urine Blood Urine Nitrite Urine Bilirubin Urine Urobilinogen Ur Leukocyte Esterase Urine RBC Urine WBC Ur Squamous Epith Cells Urine Bacteria Ur Random Sodium SARS-CoV-2 (PCR) POSITIVE SARS-CoV-2 A Influenza Type A (PCR) Negative PCR FLU A Influenza Type B (PCR) Negative PCR FLU B RSV (PCR) Negative PCR RSV SARS-CoV-2 Ag (Rapid) POSITIVE A Lab Acknowledgement Test Added Test Added POC Troponin I 10/18/24 10/18/24 10/19/24 23:00 23:20 03:05 WBC RBC Hgb Hct MCV MCH MCHC RDW Coeff of [place] Plt Count Neut % (Auto) Lymph % (Auto) [place] % (Auto) Eos % (Auto) Baso % (Auto) Neut # (Auto) Lymph # (Auto) [place] # (Auto) Eos # (Auto) Baso # (Auto) Abs Immat Gran (auto) Imm/Tot Granulo (auto) D-Dimer Quant (PE/DVT) VBG pH VBG pCO2 VBG pO2 VBG HCO3 Sodium 113 L* 121 L* Potassium 2.7 L* 3.2 L Chloride 76 L 88 L Carbon Dioxide 31 28 Anion Gap 6 L 5 L BUN 9 8 Creatinine 0.5 0.4 L Estimated Creat Clear 44.10 44.10 Estimated GFR 97 102 Glucose 129 H 114 Lactate Calcium 8.4 7.9 L Magnesium Ferritin Total Bilirubin AST ALT Alkaline Phosphatase Lactate Dehydrogenase Troponin I C-Reactive Protein Total Protein Albumin TSH Urine Color Yellow Urine Appearance Clear Urine pH 7.5 Ur Specific [place] 1.015 Urine Protein Negative Urine Glucose (UA) Negative Urine Ketones 2+ A Urine Blood Negative Urine Nitrite Negative Urine Bilirubin Negative Urine Urobilinogen 0.2 Ur Leukocyte Esterase Trace A Urine RBC 0-2 Urine WBC 0-2 Ur Squamous Epith Cells Few Urine Bacteria Few A Ur Random Sodium 59 SARS-CoV-2 (PCR) Influenza Type A (PCR) Influenza Type B (PCR) RSV (PCR) SARS-CoV-2 Ag (Rapid) Lab Acknowledgement POC Troponin I 10/19/24 10/19/24 06:31 09:57 WBC 3.89 L RBC 4.35 Hgb 12.8 Hct 36.8 MCV 85 MCH 29 MCHC 35 RDW Coeff of Albert 11.5 Plt Count 223 Neut % (Auto) 54.8 Lymph % (Auto) 30.3 [place] % (Auto) 14.4 H Eos % (Auto) 0.5 Baso % (Auto) 0.0 Neut # (Auto) 2.10 Lymph # (Auto) 1.20 [place] # (Auto) 0.60 Eos # (Auto) 0.00 Baso # (Auto) 0.00 Abs Immat Gran (auto) 0.00 Imm/Tot Granulo (auto) 0.0 D-Dimer Quant (PE/DVT) VBG pH 7.471 H VBG pCO2 40 VBG pO2 50.2 H VBG HCO3 29 H Sodium 122 L* 123 L* Potassium 3.0 L Chloride 90 L Carbon Dioxide 28 Anion Gap 4 L BUN 10 Creatinine 0.5 Estimated Creat Clear 44.10 Estimated GFR 97 Glucose 93 Lactate 0.8 Calcium 8.1 L Magnesium 2.0 Ferritin Total Bilirubin 0.2 AST 30 ALT 24 Alkaline Phosphatase 50 Lactate Dehydrogenase Troponin I C-Reactive Protein 0.8 Total Protein 6.2 Albumin 3.4 TSH Urine Color Urine Appearance Urine pH Ur Specific [place] Urine Protein Urine Glucose (UA) Urine Ketones Urine Blood Urine Nitrite Urine Bilirubin Urine Urobilinogen Ur Leukocyte Esterase Urine RBC Urine WBC Ur Squamous Epith Cells Urine Bacteria Ur Random Sodium SARS-CoV-2 (PCR) Influenza Type A (PCR) Influenza Type B (PCR) RSV (PCR) SARS-CoV-2 Ag (Rapid) Lab Acknowledgement POC Troponin I
[2024-10-19 13:26] LABS: Potassium* 3.6 mmol/L (3.6-5.1)
[2024-10-19 13:28] LABS: Sodium* 125 mmol/L (135-149)
[2024-10-19] MEDS: 5 % DEXTROSE 1000 ML 1,000 ML 50 ML IV ×2 (14:05→16:46)
[2024-10-19] MEDS: DESMOPRESSIN ACETATE 4 MCG/ML inj 2 MCG IVP (14:10)
[2024-10-19 16:28] LABS: Sodium* 124 mmol/L (135-149)
[2024-10-19] MEDS: POTASSIUM CHLORIDE 10 MEQ CAPSULE ER 20 MEQ PO (17:35)
--- NOTE | 2024-10-19 18:27 | PC.NURSE ---
Pt alert and oriented. Pt had no complaints of pain. Pt up with SBA. Pt?s VSS. O2 maintained on RA. Afebrile. ?Sodium checked Q4 hours last result was 124; see EMAR for intervention. Next lab draw at 1999. See EMAR for previous interventions.?Pt's at bedside throughout shift.
[2024-10-19 20:39] LABS: Sodium* 120 mmol/L (135-149)
[2024-10-19] MEDS: LATANOPROST 0.005% OPHTH 1 DROP EYE-BOTH (21:28)
[2024-10-19] MEDS: ENOXAPARIN 40 MG/0.4 ML INJ SUBCUT (21:28)
[2024-10-19 23:25] LABS: Sodium* 122 mmol/L (135-149)
[2024-10-20] VITALS (9 sets, daily range): BP systolic 131–176; BP diastolic 78–102; PULSE 57–66; RESP 16–18; TEMP 35.9–37.1; O2SAT 92–98
[2024-10-20 04:19] LABS: Hematocrit 35.4 % (33.0-51.0); Mean Corpuscular HGB Conc 34 gm/dL (32-36); Mean Corpuscular Hemoglobin 29 pg (26-34); Mean Corpuscular Volume 86 fL (80-100); Platelet Count* 207 K/uL (140-440); Red Blood Count 4.11 m/uL (4.00-5.20); White Blood Count* 3.92 K/uL (4.50-11.00)
[2024-10-20 04:21] LABS: Slide Review Reflex No
[2024-10-20 04:26] LABS: Chloride* 92 mmol/L (96-114); Potassium* 3.4 mmol/L (3.6-5.1)
[2024-10-20 04:29] LABS: Anion Gap 6 mEq/L (7-15); Blood Urea Nitrogen* 12 mg/dL (7-30); Carbon Dioxide* 25 mmol/L (20-32); Creatinine* 0.4 mg/dL (0.5-1.5); Estimated Glomerular Filt Rate 102 ml/min; Glucose* 76 mg/dL (60-115)
[2024-10-20 04:30] LABS: Calcium* 7.5 mg/dL (8.4-10.6)
[2024-10-20 04:36] LABS: Sodium* 123 mmol/L (135-149)
[2024-10-20] MEDS: METOPROLOL TARTRATE 1 MG/ML inj 5 MG IVP ×2 (05:11→20:56)
[2024-10-20] MEDS: SODIUM CHLORIDE 0.9 % (FLUSH) 10 ML SYRINGE 5 ML IVF ×3 (05:12→20:56)
[2024-10-20] MEDS: LEVOTHYROXINE 75 MCG TABLET PO (07:00)
[2024-10-20] MEDS: POTASSIUM CHLORIDE 10 MEQ CAPSULE ER 20 MEQ PO ×2 (07:02→17:58)
[2024-10-20] MEDS: ONDANSETRON ODT 4 MG TAB PO ×2 (07:15→14:27)
[2024-10-20 07:41] LABS: Sodium* 123 mmol/L (135-149)
[2024-10-20] MEDS: atenoloL 25 MG TABLET 12.5 MG PO (08:49)
[2024-10-20] MEDS: POTASSIUM BICARB 25 MEQ EFFERVESCENT TAB PO ×2 (08:49→10:25)
[2024-10-20] MEDS: lisinopriL 20 MG TABLET 40 MG PO (08:50)
[2024-10-20] MEDS: AMLODIPINE 5 MG TABLET PO (08:51)
[2024-10-20] MEDS: hydroCHLOROthiazide 25 MG TABLET PO (08:51)
[2024-10-20] MEDS: MAGNESIUM IV 2 GM/50 ML PIGGYBACK IVPB (08:51)
[2024-10-20] MEDS: OMEPRAZOLE 20 MG CAPSULE DR 40 MG PO (08:51)
[2024-10-20] MEDS: LORATADINE 10 MG TABLET PO (08:51)
[2024-10-20 11:43] LABS: Sodium* 121 mmol/L (135-149)
--- NOTE | 2024-10-20 12:26 | P.IMPN_ITS ---
Progress Note: A&P Assessment and plan (1) Acute COVID-19: Problem details: -Hospital Day: 2 -Symptom onset: 10/12 -Positive test: 10/15 -supportive care, lovenox, remdesivir. curbsided pulm/crit care @ [place] recommended Remdesivir. check for co-infection with Flu - influenza/RSV negative -lab features for severe covid: New no elevations in D-dimer, CRP, LDH, troponin or ferritin. There is a decrease and her absolute lymphocyte count. And while not listed the severe hyponatremia is peripherally related to her symptoms Symptomatically improving. Afebrile. No hypoxia. Add mucinex for congestion. Will need to remain in hospital for further management hyponatremia and hypokalemia Status: Acute (2) Acute hyponatremia: Problem details: -likely pre renal. Had been vomiting then replenished with clear water prior to admission. FENA ordered. Fluid bolus and maintenance of normal saline overnight. Follow BMP Q 2-4 hours. Observe and monitor for rapid rise. -fluid restriction -I did not order salt tabs but protein supplementation with shakes 10/19: rapid sodium rise from 113 to 121 overnight. Asymptomatic. Normal saline fluids discontinued. Starting D5W 11/16 NS. Will hold off on desmopressin for now. Q3 hour sodium checks. 1400pm: Desmopressin given along with D5W infusions after sodium reached 125. Fluid restriction discontinued. 10/20: 123 -> 121 this morning. Fluid restriction has been reinstated. Encourage protein drinks. Add sodium tabs t.i.d.. Mag sulfate 2g IV ordered (magnesium 2.0). Hold off on IVF for now. Continue serial sodium checks. Status: Acute (3) Acute hypokalemia: Problem details: Potassium 2.7 on admission. Improved to 3.6 -> 3.4 following IV and oral supplementation. Continue to replace and monitor Status: Acute (4) Hypothyroidism: Problem details: Continue home levothyroxine Status: Acute (5) Essential hypertension: Problem details: Continue home meds with IV metoprolol as needed Status: Acute (6) GERD (gastroesophageal reflux disease): Problem details: IV PPI on admission and then resume oral PPI Status: Acute (7) Seasonal allergic rhinitis: Problem details: Continue Claritin Status: Acute Plan Will continue to manage and monitor hyponatremia and hypokalemia. Discharge to home when stabilized. Time Spent With Patient Total time spent: Total time spent caring for the patient today was 45 minutes. This includes time spent for the visit reviewing the chart, time spent during the visit, time spent after the visit and documentation and planning in coordination of care. Subjective Date Seen: 10/20/24 Interval history: Patient is seen with at bedside. Feels more congested today, coughing up phlegm. No hypoxia. Remains afebrile. Mild nausea, tolerating orals without vomiting. Sodium reached maximum of 125 yesterday afternoon, decreased 120->123 following desmopressin and D5W infusion. Remains asymptomatic. IVF have been discontinued. Fluid restriction has been reinstated. Exam Narrative: Exam Narrative: PHYSICAL EXAM General: Pleasant, conversant, NAD HEENT: Normocephalic, atraumatic, sclera white, EOMI, oral mucosa moist Cardiovascular: RRR, S1S2. No pitting edema Pulmonary: CTA bilaterally without rhonchi, rales, expiratory wheezes. No dyspnea Neurological: Alert, answering questions appropriately, cranial nerves intact, no focal findings Extremities: No gross joint deformity or swelling. AROMI. Neurovascularly intact Skin: Warm, dry. Const: Vital Signs, click to edit/add: Vital Signs - 24 hr 10/19/24 12:37 10/19/24 14:45 10/19/24 15:01 Temperature 98.1 F 97.8 F Pulse Rate 69 Pulse Rate [Pulse Oximeter] 66 67 Respiratory Rate 16 16 Blood Pressure [Le ft Arm] 118/95 H 139/80 Pulse Oximetry 94 97 Oxygen Delivery Me thod Room Air Room Air 10/19/24 15:03 10/19/24 15:05 10/19/24 16:52 Temperature 97.9 F Pulse Rate Pulse Rate [Pulse Oximeter] 65 65 Respiratory Rate 16 16 16 Blood Pressure [Le ft Arm] Pulse Oximetry 97 96 Oxygen Delivery Me thod Room Air Room Air 10/19/24 17:03 10/19/24 19:00 10/19/24 19:00 Temperature 98.3 F Pulse Rate 64 Pulse Rate [Pulse Oximeter] 62 Respiratory Rate 16 Blood Pressure [Le ft Arm] 149/95 H 141/81 H Pulse Oximetry 97 Oxygen Delivery Me thod Room Air 10/19/24 21:00 10/19/24 23:00 10/19/24 23:00 Temperature 98.1 F Pulse Rate Pulse Rate [Pulse Oximeter] 62 62 Respiratory Rate 16 16 16 Blood Pressure [Le ft Arm] 146/94 H 136/84 Pulse Oximetry 93 97 96 Oxygen Delivery Me thod Room Air Room Air Room Air 10/19/24 23:00 10/20/24 01:00 10/20/24 02:57 Temperature Pulse Rate 60 58 L Pulse Rate [Pulse Oximeter] 58 L Respiratory Rate 16 Blood Pressure [Le ft Arm] 134/79 Pulse Oximetry 97 Oxygen Delivery Me thod Room Air 10/20/24 03:00 10/20/24 05:00 10/20/24 07:00 Temperature Pulse Rate 57 L Pulse Rate [Pulse Oximeter] 58 L 62 Respiratory Rate 16 16 Blood Pressure [Le ft Arm] 131/78 169/98 H Pulse Oximetry 92 93 Oxygen Delivery Me thod Room Air Room Air 10/20/24 07:00 10/20/24 07:00 10/20/24 10:27 Temperature 96.7 F L Pulse Rate Pulse Rate [Pulse Oximeter] 63 66 Respiratory Rate 16 16 18 Blood Pressure [Le ft Arm] 176/102 H 147/88 H Pulse Oximetry 94 97 98 Oxygen Delivery Me thod Room Air Room Air Room Air Labs Labs: Laboratory Results - last 24 hr 10/19/24 10/19/24 10/19/24 13:03 16:07 20:16 WBC RBC Hgb Hct MCV MCH MCHC Plt Count Sodium 125 L 124 L* 120 L* Potassium 3.6 Chloride Carbon Dioxide Anion Gap BUN Creatinine Estimated Creat Clear Estimated GFR Glucose Calcium 10/19/24 10/20/24 10/20/24 23:04 04:05 07:12 WBC 3.92 L RBC 4.11 Hgb 12.0 Hct 35.4 MCV 86 MCH 29 MCHC 34 Plt Count 207 Sodium 122 L* 123 L* 123 L* Potassium 3.4 L Chloride 92 L Carbon Dioxide 25 Anion Gap 6 L BUN 12 Creatinine 0.4 L Estimated Creat Clear 44.10 Estimated GFR 102 Glucose 76 Calcium 7.5 L 10/20/24 11:06 WBC RBC Hgb Hct MCV MCH MCHC Plt Count Sodium 121 L* Potassium Chloride Carbon Dioxide Anion Gap BUN Creatinine Estimated Creat Clear Estimated GFR Glucose Calcium
[2024-10-20] MEDS: SODIUM CHLORIDE 1 GM TABLET PO ×3 (13:06→22:23)
[2024-10-20 16:21] LABS: Sodium* 120 mmol/L (135-149)
[2024-10-20 20:47] LABS: Sodium* 120 mmol/L (135-149)
[2024-10-20] MEDS: guaiFENesin 600 MG TAB.ER.12H PO (20:55)
[2024-10-20] MEDS: ENOXAPARIN 40 MG/0.4 ML INJ SUBCUT (20:56)
[2024-10-20] MEDS: LATANOPROST 0.005% OPHTH 1 DROP EYE-BOTH (22:21)
[2024-10-21] VITALS (8 sets, daily range): BP systolic 127–164; BP diastolic 77–97; PULSE 61–70; RESP 16–18; TEMP 36.1–36.9; O2SAT 93–98
[2024-10-21 00:42] LABS: Sodium* 123 mmol/L (135-149)
[2024-10-21 06:38] LABS: Hematocrit 38.9 % (33.0-51.0); Hemoglobin* 13.2 gm/dL (12.0-16.0); Mean Corpuscular HGB Conc 34 gm/dL (32-36); Mean Corpuscular Hemoglobin 29 pg (26-34); Mean Corpuscular Volume 86 fL (80-100); Platelet Count* 233 K/uL (140-440); Red Blood Count 4.52 m/uL (4.00-5.20); White Blood Count* 5.16 K/uL (4.50-11.00)
[2024-10-21] MEDS: LEVOTHYROXINE 75 MCG TABLET PO (06:43)
[2024-10-21 06:51] LABS: Slide Review Reflex No
[2024-10-21 07:08] LABS: Chloride* 91 mmol/L (96-114); Potassium* 3.5 mmol/L (3.6-5.1); Sodium* 125 mmol/L (135-149)
[2024-10-21 07:11] LABS: Anion Gap 6 mEq/L (7-15); Blood Urea Nitrogen* 16 mg/dL (7-30); Carbon Dioxide* 28 mmol/L (20-32); Creatinine* 0.5 mg/dL (0.5-1.5); Estimated Glomerular Filt Rate 97 ml/min
[2024-10-21 07:12] LABS: Calcium* 8.5 mg/dL (8.4-10.6); Glucose* 85 mg/dL (60-115)
--- NOTE | 2024-10-21 08:13 | PC.NURSE ---
Shift note ([id number]): Patient pleasant, alert and oriented. Ambulated to bathroom independently. No reports of SOB. Denied pain. Reported nausea on previous shift. Per Dr. Jimenes give one time dose of Dexamethasone IVP for nausea if PRN Zofran relief does not last until next PRN dose can be given. Dexamethasone not needed as?pt has?denied?nausea since start of shift. Patient reported feeling flush all over after IV Remdesivir was started. Infusion was immediately stopped and MD was updated. Remdesivir discontinued per MD.?
[2024-10-21] MEDS: atenoloL 25 MG TABLET 12.5 MG PO ×2 (08:27→20:57)
[2024-10-21] MEDS: AMLODIPINE 5 MG TABLET PO (08:27)
[2024-10-21] MEDS: POTASSIUM CHLORIDE 10 MEQ CAPSULE ER 20 MEQ PO ×3 (08:27→18:40)
[2024-10-21] MEDS: SODIUM CHLORIDE 1 GM TABLET 2 GM PO ×2 (08:28→13:16)
[2024-10-21] MEDS: guaiFENesin 600 MG TAB.ER.12H PO ×2 (08:29→20:58)
[2024-10-21] MEDS: OMEPRAZOLE 20 MG CAPSULE DR 40 MG PO (08:29)
[2024-10-21] MEDS: LORATADINE 10 MG TABLET PO (08:29)
[2024-10-21] MEDS: SODIUM CHLORIDE 0.9 % (FLUSH) 10 ML SYRINGE 5 ML IVF ×2 (08:30→21:01)
[2024-10-21] MEDS: PSYLLIUM HUSK (WITH SUGAR) 12 GM PACKET PO (08:49)
--- NOTE | 2024-10-21 17:02 | P.IMPN_ITS ---
Progress Note: A&P Assessment and plan (1) Acute COVID-19: Problem details: -Hospital Day: 2 -Symptom onset: 10/12 -Positive test: 10/15 -supportive care, lovenox. curbsided pulm/crit care @ [place] recommended Remdesivir. Patient did not tolerate Remdesivir, this has been discontinued. check for co-infection with Flu - influenza/RSV negative -lab features for severe covid: New no elevations in D-dimer, CRP, LDH, troponin or ferritin. There is a decrease and her absolute lymphocyte count. And while not listed the severe hyponatremia is peripherally related to her symptoms Symptomatically improving. Afebrile. No hypoxia. Continue mucinex for congestion. Will need to remain in hospital for further management hyponatremia and hypokalemia. Status: Acute (2) Acute hyponatremia: Problem details: -likely due to high free water ingestion combined with dehydration. Had been vomiting then replenished with clear water prior to admission. FENA ordered. Patient's baseline is 136. 10/19: rapid sodium rise from 113 to 121 overnight. Asymptomatic. Normal saline fluids discontinued. Starting D5W 1/ NS. Will hold off on desmopressin for now. Q3 hour sodium checks. 1400pm: Desmopressin given along with D5W infusions after sodium reached 125. Fluid restriction discontinued. 10/20: 123 -> 121 this morning. Fluid restriction has been reinstated. Encourage protein drinks. Add sodium tabs t.i.d.. Mag sulfate 2g IV ordered (magnesium 2.0). Hold off on IVF for now. Continue serial sodium checks. 10/21: Increase of 123-125 overnight is within goal of 4-6 rise over 24 hours. Patient's baseline is 136, continue in-hospital treatment. Patient willing to do nutritional supplements, so I will stop salt tabs. Continue fluid restriction. Status: Acute (3) Acute hypokalemia: Problem details: Potassium 2.7 on admission. Improved to 3.6 -> 3.5 following IV and oral supplementation. Continue to replace and monitor Status: Acute (4) Hypothyroidism: Problem details: Continue home levothyroxine Status: Chronic (5) Essential hypertension: Problem details: Continue home meds with IV metoprolol as needed Status: Chronic (6) GERD (gastroesophageal reflux disease): Problem details: IV PPI on admission and then resume oral PPI Status: Chronic (7) Seasonal allergic rhinitis: Problem details: Continue Claritin Status: Chronic Plan Will continue to manage and monitor hyponatremia and hypokalemia. Discharge to home when stabilized. Time Spent With Patient Total time spent: Today I spent 45 minutes rounding on the patient. Greater than 50% included discussing care with the patient and her , the team, reviewing data, updating and managing the care plan. Subjective Time Seen by Provider: 11:00 Date Seen: 10/21/24 Interval history: Nena and her were in the room. Nena had some nausea yesterday, but is starting to feel much better today. She is wondering when she can go home. She pulled up her labs from March 2024 in [place]. Her sodium was 136 at that time. Nena reports feeling unwell, weak, and shaky when getting Remdesivir Exam Narrative: Exam Narrative: General: No acute distress. Awake, alert, oriented x3. No pallor. No jaundice. Oropharynx: Clear. Mucous membranes moist. Cardiovascular: Regular rate and rhythm. No murmurs, gallops, or rubs. Respiratory: Clear to auscultation bilaterally. No wheezes or crackles. Abdomen: Bowel sounds present. Soft, nondistended, nontender. Const: Vital Signs, click to edit/add: Vital Signs - 24 hr 10/20/24 19:00 10/20/24 23:00 10/20/24 23:00 Temperature 98.4 F Pulse Rate [Pulse Oximeter] 63 65 Respiratory Rate 18 18 18 Blood Pressure [Le ft Arm] 147/87 H 156/94 H Pulse Oximetry 95 97 94 Oxygen Delivery Me thod Room Air Room Air Room Air 10/21/24 02:11 10/21/24 07:00 10/21/24 07:00 Temperature 98.2 F Pulse Rate [Pulse Oximeter] 63 62 Respiratory Rate 18 18 18 Blood Pressure [Le ft Arm] 164/97 H Pulse Oximetry 97 97 Oxygen Delivery Me thod Room Air Room Air 10/21/24 07:00 10/21/24 09:09 10/21/24 12:50 Temperature 98.4 F Pulse Rate [Pulse Oximeter] 62 66 Respiratory Rate 18 18 16 Blood Pressure [Le ft Arm] 143/83 H 134/91 H Pulse Oximetry 96 98 95 Oxygen Delivery Me thod Room Air Room Air Room Air 10/21/24 13:26 Temperature 97.0 F L Pulse Rate [Pulse Oximeter] Respiratory Rate Blood Pressure [Le ft Arm] Pulse Oximetry Oxygen Delivery Me thod Labs Labs: Laboratory Results - last 24 hr 10/20/24 10/21/24 10/21/24 17:39 00:10 06:06 WBC 5.16 RBC 4.52 Hgb 13.2 Hct 38.9 MCV 86 MCH 29 MCHC 34 Plt Count 233 Sodium 120 L* 123 L* 125 L Potassium 3.5 L Chloride 91 L Carbon Dioxide 28 Anion Gap 6 L BUN 16 Creatinine 0.5 Estimated Creat Clear 44.10 Estimated GFR 97 Glucose 85 Calcium 8.5
[2024-10-21 17:27] LABS: Sodium* 129 mmol/L (135-149)
[2024-10-21] MEDS: polyethylene glycoL 3350 17 GM PACK PO (17:30)
[2024-10-21] MEDS: 5 % DEXTROSE 1000 ML 1,000 ML 50 ML IV (18:30)
--- NOTE | 2024-10-21 18:42 | PC.NURSE ---
Pt moving independently throughout her room and able to verbalize needs. Denies pain. States she has not experienced any nausea today and has had an increased appetite. She is eating over 50% of her meal trays and drank 100% of one ensure supplement this afternoon. VS WNL and LS COA. Afebrile. Sodium increased to 129. D5 started per .
--- NOTE | 2024-10-21 18:44 | PC.NURSE ---
Pt also c/o constipation. PRN Miralax given this afternoon and pt states she had a small to moderate sized hard BM.
[2024-10-21] MEDS: SENNOSIDES/DOCUSATE TABLET 1 TAB PO (20:58)
[2024-10-21] MEDS: METOPROLOL TARTRATE 1 MG/ML inj 5 MG IVP (20:58)
[2024-10-21] MEDS: ENOXAPARIN 40 MG/0.4 ML INJ SUBCUT (21:01)
[2024-10-21] MEDS: LATANOPROST 0.005% OPHTH 1 DROP EYE-BOTH (21:02)
[2024-10-21 21:52] LABS: Sodium* 126 mmol/L (135-149)
[2024-10-22] VITALS (7 sets, daily range): BP systolic 118–164; BP diastolic 73–95; PULSE 63–90; RESP 16–20; TEMP 36.7–37.2; O2SAT 92–96
[2024-10-22 06:11] LABS: Hematocrit 38.1 % (33.0-51.0); Hemoglobin* 12.6 gm/dL (12.0-16.0); Mean Corpuscular HGB Conc 33 gm/dL (32-36); Mean Corpuscular Hemoglobin 29 pg (26-34); Mean Corpuscular Volume 88 fL (80-100); Platelet Count* 233 K/uL (140-440); Red Blood Count 4.34 m/uL (4.00-5.20); Slide Review Reflex No; White Blood Count* 5.69 K/uL (4.50-11.00)
[2024-10-22 06:21] LABS: Chloride* 97 mmol/L (96-114); Potassium* 4.8 mmol/L (3.6-5.1); Sodium* 128 mmol/L (135-149)
[2024-10-22] MEDS: LEVOTHYROXINE 75 MCG TABLET PO (06:23)
[2024-10-22 06:24] LABS: Anion Gap 5 mEq/L (7-15); Blood Urea Nitrogen* 16 mg/dL (7-30); Carbon Dioxide* 26 mmol/L (20-32); Creatinine* 0.5 mg/dL (0.5-1.5); Estimated Glomerular Filt Rate 97 ml/min
[2024-10-22 06:25] LABS: Calcium* 8.5 mg/dL (8.4-10.6); Glucose* 84 mg/dL (60-115)
[2024-10-22] MEDS: POTASSIUM CHLORIDE 10 MEQ CAPSULE ER 20 MEQ PO ×2 (09:11→18:04)
[2024-10-22] MEDS: SENNOSIDES/DOCUSATE TABLET 1 TAB PO ×2 (09:11→21:42)
[2024-10-22] MEDS: OMEPRAZOLE 20 MG CAPSULE DR 40 MG PO (09:11)
[2024-10-22] MEDS: AMLODIPINE 5 MG TABLET PO (09:11)
[2024-10-22] MEDS: guaiFENesin 600 MG TAB.ER.12H PO ×2 (09:12→21:42)
--- NOTE | 2024-10-22 11:22 | RESP.RT ---
Patient sitting up in bed, has fair to good congested moist cough. PEP with Aerob[employer] information, demonstration with patient and . Patient made good exhalation with chest shake. Had patient feel chest shake to understand use of Aerobika. Promoted good loose cough, patient swallowed secretions. Patient uses IS effectively, good controlled breath, 500, with disc in middle of column.
[2024-10-22] MEDS: polyethylene glycoL 3350 17 GM PACK PO (12:00)
[2024-10-22] MEDS: SODIUM CHLORIDE 1 GM TABLET PO ×2 (12:01→18:04)
[2024-10-22 15:48] LABS: Sodium* 129 mmol/L (135-149)
--- NOTE | 2024-10-22 16:01 | PM.IMPN1 ---
Progress Note: A&P Assessment and plan (1) Acute COVID-19: Problem details: -Symptom onset: 10/12 -Positive test: 10/15 -supportive care, lovenox. curbsided pulm/crit care @ [place] recommended Remdesivir. Patient did not tolerate Remdesivir, this has been discontinued. check for co-infection with Flu - influenza/RSV negative -lab features for severe covid: New no elevations in D-dimer, CRP, LDH, troponin or ferritin. There is a decrease and her absolute lymphocyte count. And while not listed the severe hyponatremia is peripherally related to her symptoms Symptomatically improving. Afebrile. No hypoxia. Continue mucinex for congestion. Will need to remain in hospital for further management hyponatremia and hypokalemia. Status: Acute (2) Acute hyponatremia: Problem details: -likely due to high free water ingestion combined with dehydration. Had been vomiting then replenished with clear water prior to admission. FENA ordered. Patient's baseline is 136. 10/19: rapid sodium rise from 113 to 121 overnight. Asymptomatic. Normal saline fluids discontinued. Starting D5W / NS. Will hold off on desmopressin for now. Q3 hour sodium checks. 1400pm: Desmopressin given along with D5W infusions after sodium reached 125. Fluid restriction discontinued. 10/20: 123 -> 121 this morning. Fluid restriction has been reinstated. Encourage protein drinks. Add sodium tabs t.i.d.. Mag sulfate 2g IV ordered (magnesium 2.0). Hold off on IVF for now. Continue serial sodium checks. 10/21: Increase of 123-125 overnight is within goal of 4-6 rise over 24 hours. Patient's baseline is 136, continue in-hospital treatment. Patient willing to do nutritional supplements, so I will stop salt tabs. Continue fluid restriction. 10/22: Na 128 this am. Adequate increase, within goal. Patient not successful with nutritional supplements yesterday. Will add back salt tabs at a lower dose and loosen fluid restriction a little. Continue to encourage nutritional supplementation. Anticipate that she will likely have increased to a sodium that is adequate for discharge home by tomorrow. Status: Acute (3) Acute hypokalemia: Problem details: Potassium 2.7 on admission. Resolved, potassium 4.8 today. Status: Resolved (4) Hypothyroidism: Problem details: Continue home levothyroxine Status: Chronic (5) Essential hypertension: Problem details: Continue home meds with IV metoprolol as needed Status: Chronic (6) GERD (gastroesophageal reflux disease): Problem details: IV PPI on admission and then resume oral PPI Status: Chronic (7) Seasonal allergic rhinitis: Problem details: Continue Claritin Status: Chronic Plan Will continue to manage and monitor hyponatremia. Discharge to home when stabilized. Time Spent With Patient Total time spent: Today I spent 35 minutes rounding on the patient. Greater than 50% included discussing care with the patient and her , the team, reviewing data, updating and managing the care plan. Subjective Time Seen by Provider: 08:58 Date Seen: 10/22/24 Interval history: Nena feels well today, but she would really love to have more water. She is feeling very thirsty and says that she is only getting a couple 100 mL per shift for water. Her also came in today and I spoke with him in the hallway before he went in the room. We again discussed hyponatremia and I noted that I thought she would likely be ready to go home tomorrow. Exam Narrative: Exam Narrative: General: No acute distress. Awake, alert, oriented x3. No pallor. No jaundice. Oropharynx: Clear. Mucous membranes moist. Cardiovascular: Regular rate and rhythm. No murmurs, gallops, or rubs. Respiratory: Clear to auscultation bilaterally. No wheezes or crackles. Abdomen: Bowel sounds present. Soft, nondistended, nontender. Const: Vital Signs, click to edit/add: Vital Signs - 24 hr 10/21/24 19:00 10/21/24 22:18 10/21/24 22:18 Temperature 98.1 F 98.3 F Pulse Rate [Pulse Oximeter] 67 61 Respiratory Rate 18 16 Blood Pressure [Le ft Arm] 136/80 131/84 Pulse Oximetry 93 94 95 Oxygen Delivery Me thod Room Air Room Air Room Air 10/22/24 03:00 10/22/24 07:00 10/22/24 07:00 Temperature 98.0 F 98.1 F Pulse Rate [Pulse Oximeter] 63 63 Respiratory Rate 18 16 16 Blood Pressure [Le ft Arm] 142/86 H 133/88 Pulse Oximetry 92 95 95 Oxygen Delivery Me thod Room Air Room Air Room Air 10/22/24 07:00 10/22/24 11:00 10/22/24 11:18 Temperature 98.1 F Pulse Rate [Pulse Oximeter] 63 67 Respiratory Rate 20 16 20 Blood Pressure [Le ft Arm] 134/85 Pulse Oximetry 95 94 Oxygen Delivery Me thod Room Air Room Air 10/22/24 15:00 Temperature 98.1 F Pulse Rate [Pulse Oximeter] 64 Respiratory Rate 16 Blood Pressure [Le ft Arm] 118/73 Pulse Oximetry 96 Oxygen Delivery Me thod Room Air Labs Labs: Laboratory Results - last 24 hr 10/21/24 10/21/24 10/22/24 16:43 21:32 05:56 WBC 5.69 RBC 4.34 Hgb 12.6 Hct 38.1 MCV 88 MCH 29 MCHC 33 Plt Count 233 Sodium 129 L 126 L 128 L Potassium 4.8 Chloride 97 Carbon Dioxide 26 Anion Gap 5 L BUN 16 Creatinine 0.5 Estimated Creat Clear 44.10 Estimated GFR 97 Glucose 84 Calcium 8.5 10/22/24 15:30 WBC RBC Hgb Hct MCV MCH MCHC Plt Count Sodium 129 L Potassium Chloride Carbon Dioxide Anion Gap BUN Creatinine Estimated Creat Clear Estimated GFR Glucose Calcium
--- NOTE | 2024-10-22 19:04 | PC.NURSE ---
End of shift-- VSS and pt is afebrile. SPO2 >94% on RA. Pt denied any pain. LS CTA. She denied nausea and tolerated a regular diet without difficulty. She was up independently and tolerated it well. She also drank 2x Ensure. 1800ml fluid restriction maintained.
[2024-10-22] MEDS: ONDANSETRON ODT 4 MG TAB PO (20:13)
[2024-10-22] MEDS: PROCHLORPERAZINE 5 MG/ML VIAL 10 MG IV (21:39)
[2024-10-22] MEDS: atenoloL 25 MG TABLET 12.5 MG PO (21:40)
[2024-10-22] MEDS: ENOXAPARIN 40 MG/0.4 ML INJ SUBCUT (21:41)
[2024-10-22] MEDS: LATANOPROST 0.005% OPHTH 1 DROP EYE-BOTH (21:42)
[2024-10-22] MEDS: SODIUM CHLORIDE 0.9 % (FLUSH) 10 ML SYRINGE 5 ML IVF (21:52)
--- NOTE | 2024-10-22 23:23 | PC.NURSE ---
Pt up in room independently. C/O nausea, see MAR for medication management with relief. Pt has no other questions or concerns with junior technical writer.
[2024-10-23] VITALS (13 sets, daily range): BP systolic 141–172; BP diastolic 75–102; PULSE 74–109; RESP 16–18; TEMP 36.4–38.4; O2SAT 94–95
[2024-10-23] MEDS: ONDANSETRON ODT 4 MG TAB PO ×2 (00:14→14:11)
[2024-10-23] MEDS: ACETAMINOPHEN 325 MG TABLET PO (02:46)
--- NOTE | 2024-10-23 04:40 | PC.NURSE ---
Pt was very nauseated @2300. Zofran given and nausea relieved. Pt was afebrile at this time. @ 0300 VS Pt Temp was 100.7. Tylenol given prn. HR was 109. Charge nurse notified. @ 0420 Pt temp was 101.1 / HR was 106bpm. Tele Dr notified and wanted 2 sets of blood cultures run stat. Lab said there is a blood culture shortage and we could only run one culture at this time. Patient states that is feeling better since taking the prn Tylenol at 0300. Pt up IND, not dizzy, stable on feet and voiding
[2024-10-23 05:46] LABS: Hematocrit 37.8 % (33.0-51.0); Hemoglobin* 12.7 gm/dL (12.0-16.0); Mean Corpuscular HGB Conc 34 gm/dL (32-36); Mean Corpuscular Hemoglobin 30 pg (26-34); Mean Corpuscular Volume 90 fL (80-100); Platelet Count* 250 K/uL (140-440); Red Blood Count 4.22 m/uL (4.00-5.20); White Blood Count* 11.91 K/uL (4.50-11.00)
[2024-10-23 05:59] LABS: Chloride* 96 mmol/L (96-114); Potassium* 4.7 mmol/L (3.6-5.1); Sodium* 127 mmol/L (135-149)
[2024-10-23 06:02] LABS: Anion Gap 5 mEq/L (7-15); Blood Urea Nitrogen* 18 mg/dL (7-30); Carbon Dioxide* 26 mmol/L (20-32); Creatinine* 0.5 mg/dL (0.5-1.5); Estimated Glomerular Filt Rate 97 ml/min; Glucose* 134 mg/dL (60-115)
[2024-10-23 06:03] LABS: Calcium* 8.3 mg/dL (8.4-10.6)
[2024-10-23] MEDS: LEVOTHYROXINE 75 MCG TABLET PO (06:04)
--- NOTE | 2024-10-23 06:10 | PC.NURSE ---
@ 0600 Pt Temp was 98.9 and HR 102.
[2024-10-23 06:33] LABS: Slide Review Reflex No
--- NOTE | 2024-10-23 07:25 | CRLHL7_ITS ---
For Patients: As a result of the Century Cures Act, medical imaging exams and procedure reports are released immediately into your electronic medical record. You may view this report before your referring provider. If you have questions, please contact your health care provider. INDICATION: Sepsis, nausea, hyponatremia, COVID positive TECHNIQUE: CT chest, abdomen and pelvis acquired 81 cc Isovue 370 IV contrast. COMPARISON: Chest radiograph 10/18/2024. FINDINGS: CHEST: Cardiovascular structures: Heart size is normal. Trace pericardial effusion, which may be physiologic. Thoracic aorta and main pulmonary artery are normal in caliber. No evidence of central or segmental pulmonary embolism. Mediastinum and bebe: No mass or adenopathy. Lungs and pleura: There is a 2 millimeter nodule in the left upper lobe (3/36). Area of scarring in the right middle lobe. Chest wall and axilla: No mass or adenopathy. Bones: Diffuse osseous demineralization. Mild degenerative disease of the thoracic spine. ABDOMEN AND PELVIS: Liver: Unremarkable. Gallbladder and bile ducts: Unremarkable. Pancreas: Unremarkable. Spleen: Unremarkable. Adrenal glands: Unremarkable. Kidneys: Unremarkable. GI tract: Small hiatal hernia. No obstruction. No significant bowel wall thickening. Vascular structures: Mild aortoiliac atherosclerosis. Lymph nodes: Unremarkable. Peritoneum/Retroperitoneum/Abdominal Wall: Unremarkable. No free air or significant free fluid. Pelvic Organs: Hysterectomy. Bones and superficial soft tissues: No acute or suspicious osseous lesions. Diffuse osseous demineralization. Moderate degenerative disease of the lumbar spine. IMPRESSION: No acute findings in the chest, abdomen or pelvis. There is a 2 millimeter pulmonary nodule in the left upper lobe. In a low risk patient, no further follow-up is indicated. In a high-risk patient, CT of the chest can be considered in 12 months to evaluate for stability. Please note that all CT scans at this facility use dose modulation, iterative reconstruction, and/or weight-based dosing when appropriate to reduce radiation dose to as low as reasonably achievable. Dictated by Mahnaz Thacker MD @ 10/23/2024 9:58:33 AM (Electronically Signed)
[2024-10-23] MEDS: SODIUM CHLORIDE 1 GM TABLET PO (08:48)
[2024-10-23] MEDS: LORATADINE 10 MG TABLET PO (08:48)
[2024-10-23] MEDS: guaiFENesin 600 MG TAB.ER.12H PO ×2 (08:48→21:48)
[2024-10-23] MEDS: OMEPRAZOLE 20 MG CAPSULE DR 40 MG PO (08:48)
[2024-10-23] MEDS: POTASSIUM CHLORIDE 10 MEQ CAPSULE ER 20 MEQ PO ×2 (08:48→18:26)
[2024-10-23] MEDS: SENNOSIDES/DOCUSATE TABLET 1 TAB PO (08:48)
[2024-10-23] MEDS: SODIUM CHLORIDE 0.9 % (FLUSH) 10 ML SYRINGE 5 ML IVF (08:49)
[2024-10-23] MEDS: AMLODIPINE 5 MG TABLET PO (08:49)
[2024-10-23] MEDS: PIPERACILLIN/TAZOBACTAM 3.375 GM in 0.9 % SODIUM CHLORIDE Mini-bag 100 ML IVPB ×3 (08:49→20:33)
[2024-10-23 09:44] LABS: Appearance Urine Clear (Clear); Bilirubin Urine Negative (Negative); Blood Urine Negative (Negative); Color Urine Yellow (Yellow); Glucose Urine Negative (Negative); Ketones Urine Negative (Negative); Leukocyte Esterase Urine 1+ (Negative); Nitrite Urine Negative (Negative); Protein Urine Negative (Negative); Specific Gravity Urine 1.015 (1.000-1.030); Urobilinogen Urine 0.2 (0.2-1.0)
[2024-10-23] MEDS: VANCOMYCIN 1.25 GM/250 ML 1.25 GM/250 ML PIGGYBACK IVPB (09:56)
[2024-10-23 09:57] LABS: RBC Urine 0-2 (0-2); Squamous Epithelial Cell Urine Few (None-Few); WBC Urine 0-2 (0-5)
[2024-10-23 11:21] LABS: Albumin* 3.2 g/dL (3.3-5.0)
[2024-10-23 11:24] LABS: Alkaline Phosphatase* 54 U/L (40-150); Aspartate Amino Transferase* 33 U/L (12-35); Bilirubin Direct* 0.1 mg/dL (0.0-0.5); Bilirubin Total* 0.1 mg/dL (0.1-1.5); Total Protein* 5.8 g/dL (6.0-8.3)
[2024-10-23 11:25] LABS: Alanine Aminotransferase* 29 U/L (4-35)
[2024-10-23] MEDS: SODIUM CHLORIDE 1 GM TABLET 2 GM PO ×2 (12:56→18:26)
--- NOTE | 2024-10-23 17:12 | P.IMPN_ITS ---
Progress Note: A&P Assessment and plan (1) Acute COVID-19: Problem details: -Symptom onset: 10/12 -Positive test: 10/15 -supportive care, lovenox. curbsided pulm/crit care @ [facility] recommended Remdesivir. Patient did not tolerate Remdesivir, this has been discontinued. check for co-infection with Flu - influenza/RSV negative -lab features for severe covid: New no elevations in D-dimer, CRP, LDH, troponin or ferritin. There is a decrease and her absolute lymphocyte count. And while not listed the severe hyponatremia is peripherally related to her symptoms Symptomatically improving. Afebrile. No hypoxia. Continue mucinex for congestion. Will need to remain in hospital for further management hyponatremia and hypokalemia. Status: Acute (2) Acute hyponatremia: Problem details: -likely due to high free water ingestion combined with dehydration. Had been vomiting then replenished with clear water prior to admission. FENA ordered. Patient's baseline is 136. 10/19: rapid sodium rise from 113 to 121 overnight. Asymptomatic. Normal saline fluids discontinued. Starting D5W 11/16 NS. Will hold off on desmopressin for now. Q3 hour sodium checks. 1400pm: Desmopressin given along with D5W infusions after sodium reached 125. Fluid restriction discontinued. 10/20: 123 -> 121 this morning. Fluid restriction has been reinstated. Encourage protein drinks. Add sodium tabs t.i.d.. Mag sulfate 2g IV ordered (magnesium 2.0). Hold off on IVF for now. Continue serial sodium checks. 10/21: Increase of 123-125 overnight is within goal of 4-6 rise over 24 hours. Patient's baseline is 136, continue in-hospital treatment. Patient willing to do nutritional supplements, so I will stop salt tabs. Continue fluid restriction. 10/22: Na 128 this am. Adequate increase, within goal. Patient not successful with nutritional supplements yesterday. Will add back salt tabs at a lower dose and loosen fluid restriction a little. Continue to encourage nutritional supplementation. Anticipate that she will likely have increased to a sodium that is adequate for discharge home by tomorrow 10/23: Sodium 127 this morning. I have increased sodium tabs to 2 g t.i.d.. Will continue with the current fluid restriction and recheck sodium this evening. Patient describes low appetite and had nausea again early this morning. I have encouraged her to use nutritional shakes release get protein in her diet. Status: Acute (3) Acute hypokalemia: Problem details: Potassium 2.7 on admission. Resolved, potassium 4.7 today. Status: Resolved (4) Hypothyroidism: Problem details: Continue home levothyroxine Status: Chronic (5) Essential hypertension: Problem details: Continue home meds with IV metoprolol as needed Status: Chronic (6) GERD (gastroesophageal reflux disease): Problem details: Continue oral PPI Status: Chronic (7) Pulmonary nodule less than 6 mm determined by computed tomography of lung: Problem details: - seen on CT 10/23/2024, 2 mm, never smoker, low risk, no follow-up needed Status: Acute (8) Fever: Problem details: - was associated with nausea, no other constitutional symptoms, did have elevated heart rate with fever, vancomycin and Zosyn started this morning, nothing found on imaging or UA or labs to explain fever, suspect sinusitis, discontinue vancomycin, continue Zosyn overnight and monitor, if nothing else found or declares itself, will likely send home with a few days of Augmentin. Status: Acute Plan Will continue to manage and monitor hyponatremia. Discharge to home when stabilized. Time Spent With Patient Total time spent: Today I spent 35 minutes rounding on the patient. Greater than 50% included discussing care with the patient and her , the team, reviewing data, updating and managing the care plan. Subjective Time Seen by Provider: 07:20 Date Seen: 10/23/24 Interval history: Nena had a fever this morning of 101.1F. She felt unwell and nauseous and had an elevated HR. WBC this morning is elevated. BC were drawn. When I came in this morning, her nausea and fever had resolved. She complains of sinus pressure and pain that has been getting worse over the last few days and today she tells me it feels like a sinus infection. Her came in this morning and I went back and we all discussed results of the labs and CT scans. Their questions were answered. They were comfortable with the plan. Exam Narrative: Exam Narrative: General: No acute distress. Awake, alert, oriented x3. No pallor. No jaundice. Face: Pain to palpation of left face, no erythema or swelling noted. Oropharynx: Clear. Mucous membranes moist. Cardiovascular: Regular rate and rhythm. No murmurs, gallops, or rubs. Respiratory: Clear to auscultation bilaterally. No wheezes or crackles. Abdomen: Bowel sounds present. Soft, nondistended, nontender. No masses or hepatosplenomegaly. Const: Vital Signs, click to edit/add: Vital Signs - 24 hr 10/22/24 20:15 10/22/24 23:48 10/23/24 00:05 Temperature 98.4 F 98.9 F Pulse Rate [Pulse Oximeter] 74 90 90 Respiratory Rate 16 16 16 Blood Pressure [Le ft Arm] 163/93 H 164/95 H Pulse Oximetry 95 95 Oxygen Delivery Me thod Room Air Room Air 10/23/24 00:06 10/23/24 02:46 10/23/24 02:50 Temperature 100.7 F H 100.7 F H Pulse Rate [Pulse Oximeter] 109 H Respiratory Rate 16 16 Blood Pressure [Le ft Arm] 141/83 H Pulse Oximetry 95 94 Oxygen Delivery Me thod Room Air Room Air 10/23/24 03:30 10/23/24 04:39 10/23/24 05:36 Temperature 100.8 F H 101.1 F H 101.1 F H Pulse Rate [Pulse Oximeter] 106 H Respiratory Rate 16 Blood Pressure [Le ft Arm] 148/89 H Pulse Oximetry 94 Oxygen Delivery Me thod Room Air 10/23/24 06:09 10/23/24 08:38 10/23/24 08:38 Temperature 98.9 F 97.6 F Pulse Rate [Pulse Oximeter] 102 H 81 Respiratory Rate 16 16 18 Blood Pressure [Le ft Arm] 147/91 H Pulse Oximetry 94 95 95 Oxygen Delivery Me thod Room Air Room Air Room Air 10/23/24 11:05 10/23/24 15:00 10/23/24 15:00 Temperature 98.2 F 98.3 F Pulse Rate [Pulse Oximeter] 74 78 Respiratory Rate 16 18 18 Blood Pressure [Le ft Arm] 142/75 H 153/96 H Pulse Oximetry 95 94 94 Oxygen Delivery Me thod Room Air Room Air Room Air 10/23/24 16:00 Temperature Pulse Rate [Pulse Oximeter] 78 Respiratory Rate 18 Blood Pressure [Le ft Arm] Pulse Oximetry Oxygen Delivery Me thod Labs Labs: Laboratory Results - last 24 hr 10/23/24 10/23/24 05:15 09:33 WBC 11.91 H RBC 4.22 Hgb 12.7 Hct 37.8 MCV 90 MCH 30 MCHC 34 Plt Count 250 Sodium 127 L Potassium 4.7 Chloride 96 Carbon Dioxide 26 Anion Gap 5 L BUN 18 Creatinine 0.5 Estimated Creat Clear 44.10 Estimated GFR 97 Glucose 134 H Calcium 8.3 L Total Bilirubin 0.1 Direct Bilirubin 0.1 AST 33 ALT 29 Alkaline Phosphatase 54 Total Protein 5.8 L Albumin 3.2 L Urine Color Yellow Urine Appearance Clear Urine pH 8.0 Ur Specific [place] 1.015 Urine Protein Negative Urine Glucose (UA) Negative Urine Ketones Negative Urine Blood Negative Urine Nitrite Negative Urine Bilirubin Negative Urine Urobilinogen 0.2 Ur Leukocyte Esterase 1+ A Urine RBC 0-2 Urine WBC 0-2 Ur Squamous Epith Cells Few Urine Bacteria None Lab Acknowledgement Test Added Ordering Physician: Martha Benavides M.D. Date of Service: 10/23/24 Procedure(s): CT chest abdomen pelv w con Accession Number(s): [id number] cc: Zelda Maldonado M.D.; Martha Benavides M.D.~ For Patients: As a result of the Cures Act, medical imaging exams and procedure reports are released immediately into your electronic medical record. You may view this report before your referring provider. If you have questions, please contact your health care provider. INDICATION: Sepsis, nausea, hyponatremia, COVID positive TECHNIQUE: CT chest, abdomen and pelvis acquired 81 cc Isovue 370 IV contrast. COMPARISON: Chest radiograph 10/18/2024. FINDINGS: CHEST: Cardiovascular structures: Heart size is normal. Trace pericardial effusion, which may be physiologic. Thoracic aorta and main pulmonary artery are normal in caliber. No evidence of central or segmental pulmonary embolism. Mediastinum and bebe: No mass or adenopathy. Lungs and pleura: There is a 2 millimeter nodule in the left upper lobe (3/36). Area of scarring in the right middle lobe. Chest wall and axilla: No mass or adenopathy. Bones: Diffuse osseous demineralization. Mild degenerative disease of the thoracic spine. ABDOMEN AND PELVIS: Liver: Unremarkable. Gallbladder and bile ducts: Unremarkable. Pancreas: Unremarkable. Spleen: Unremarkable. Adrenal glands: Unremarkable. Kidneys: Unremarkable. GI tract: Small hiatal hernia. No obstruction. No significant bowel wall thickening. Vascular structures: Mild aortoiliac atherosclerosis. Lymph nodes: Unremarkable. Peritoneum/Retroperitoneum/Abdominal Wall: Unremarkable. No free air or significant free fluid. Pelvic Organs: Hysterectomy. Bones and superficial soft tissues: No acute or suspicious osseous lesions. Diffuse osseous demineralization. Moderate degenerative disease of the lumbar spine. IMPRESSION: No acute findings in the chest, abdomen or pelvis. There is a 2 millimeter pulmonary nodule in the left upper lobe. In a low risk patient, no further follow-up is indicated. In a high-risk patient, CT of the chest can be considered in 12 months to evaluate for stability. Please note that all CT scans at this facility use dose modulation, iterative reconstruction, and/or weight-based dosing when appropriate to reduce radiation dose to as low as reasonably achievable. Dictated by Mahnaz Thacker MD @ 10/23/2024 9:58:33 AM (Electronically Signed)
[2024-10-23 19:49] LABS: Sodium* 128 mmol/L (135-149)
[2024-10-23] MEDS: atenoloL 25 MG TABLET 12.5 MG PO (21:48)
[2024-10-23] MEDS: ENOXAPARIN 40 MG/0.4 ML INJ SUBCUT (21:49)
[2024-10-23] MEDS: LATANOPROST 0.005% OPHTH 1 DROP EYE-BOTH (21:50)
--- NOTE | 2024-10-23 22:42 | PC.NURSE ---
Shift Note: Bp's slightly hypertensive, 170's systolic. VS otherwise WNL. Patient has been afebrile. Sodium improved to 128. She reports a poor appetite but was able to eat some rice and applesauce for dinner as well as an ensure supplement later in the evening. Pt reports several loose stools. updated and stool sample needed for C-diff.
[2024-10-24 00:16] VITALS: BP 170/100; PULSE 88; RESP 16; TEMP 36.5; O2SAT 96
[2024-10-24 00:52] LABS: C.Difficile Negative (Negative); CDIFFEPI 027 PRESUMPTIVE NEGATIVE (Negative)
[2024-10-24 01:50] VITALS: BP 167/101; PULSE 85; RESP 16; TEMP 36.7; O2SAT 96
[2024-10-24] MEDS: PIPERACILLIN/TAZOBACTAM 3.375 GM in 0.9 % SODIUM CHLORIDE Mini-bag 100 ML IVPB ×2 (01:51→07:17)
[2024-10-24] MEDS: LEVOTHYROXINE 75 MCG TABLET PO (05:59)
[2024-10-24 06:29] LABS: Hematocrit 38.7 % (33.0-51.0); Hemoglobin* 12.8 gm/dL (12.0-16.0); Mean Corpuscular HGB Conc 33 gm/dL (32-36); Mean Corpuscular Hemoglobin 29 pg (26-34); Mean Corpuscular Volume 89 fL (80-100); Platelet Count* 249 K/uL (140-440); Red Blood Count 4.35 m/uL (4.00-5.20); White Blood Count* 3.82 K/uL (4.50-11.00)
[2024-10-24 06:31] LABS: Slide Review Reflex No
[2024-10-24 06:36] LABS: Chloride* 96 mmol/L (96-114); Potassium* 3.6 mmol/L (3.6-5.1); Sodium* 128 mmol/L (135-149)
[2024-10-24 06:39] LABS: Anion Gap 7 mEq/L (7-15); Blood Urea Nitrogen* 7 mg/dL (7-30); Carbon Dioxide* 25 mmol/L (20-32); Creatinine* 0.5 mg/dL (0.5-1.5); Estimated Glomerular Filt Rate 97 ml/min; Glucose* 97 mg/dL (60-115)
--- NOTE | 2024-10-24 06:39 | PC.NURSE ---
Pt is alert and oriented x3. Afebrile. Pt denies pain, chest pain, SOB, and N/V. Pt is up ad gokul in room, voiding, tolerating a regular diet, and had 1 loose BM overnight.
[2024-10-24 06:40] LABS: Calcium* 8.3 mg/dL (8.4-10.6)
[2024-10-24] MEDS: SODIUM CHLORIDE 0.9 % (FLUSH) 10 ML SYRINGE 5 ML IVF ×2 (07:18→08:13)
[2024-10-24 08:07] VITALS: BP 154/98; PULSE 79; RESP 16; TEMP 36.9; O2SAT 95
[2024-10-24] MEDS: AMLODIPINE 5 MG TABLET PO (08:12)
[2024-10-24] MEDS: POTASSIUM CHLORIDE 10 MEQ CAPSULE ER 20 MEQ PO (08:12)
[2024-10-24] MEDS: SODIUM CHLORIDE 1 GM TABLET 2 GM PO ×2 (08:12→13:31)
[2024-10-24] MEDS: guaiFENesin 600 MG TAB.ER.12H PO (08:13)
[2024-10-24] MEDS: OMEPRAZOLE 20 MG CAPSULE DR 40 MG PO (08:13)
[2024-10-24] MEDS: LORATADINE 10 MG TABLET PO (08:13)
[2024-10-24] MEDS: AMOXICILLIN/CLAVULANATE 875 mg/125 mg TABLET PO (09:51)
--- NOTE | 2024-10-24 11:50 | P.DS_ITS ---
DS: Providers Provider Time Seen by Provider: 09:30 Date Seen: 10/24/24 Date of admission: 10/18/24 21:56 Primary care physician: Zelda Maldonado MD Admitting Clinician: Maia Winters MD Attending Physician on discharge: Martha Benavides MD DS: Diagnosis Discharge Diagnosis (1) Acute COVID-19: Status: Acute Problem details: -Symptom onset: 10/12 -Positive test: 10/15 -supportive care, lovenox. curbsided pulm/crit care @ [facility] recommended Remdesivir. Patient did not tolerate Remdesivir, this has been discontinued. check for co-infection with Flu - influenza/RSV negative -lab features for severe covid: New no elevations in D-dimer, CRP, LDH, troponin or ferritin. There is a decrease and her absolute lymphocyte count. And while not listed the severe hyponatremia is peripherally related to her symptoms Symptomatically improved. Afebrile. No hypoxia. 13 days out from symptom onset. D/c home today. (2) Acute hyponatremia: Status: Acute Problem details: -likely due to high free water ingestion combined with dehydration. Had been vomiting then replenished with clear water prior to admission. FENA ordered. Patient's baseline is 136. 10/19: rapid sodium rise from 113 to 121 overnight. Asymptomatic. Normal saline fluids discontinued. Starting D5W 1/ NS. Will hold off on desmopressin for now. Q3 hour sodium checks. 1400pm: Desmopressin given along with D5W infusions after sodium reached 125. Fluid restriction discontinued. 10/20: 123 -> 121 this morning. Fluid restriction has been reinstated. Encourage protein drinks. Add sodium tabs t.i.d.. Mag sulfate 2g IV ordered (magnesium 2.0). Hold off on IVF for now. Continue serial sodium checks. 10/21: Increase of 123-125 overnight is within goal of 4-6 rise over 24 hours. Patient's baseline is 136, continue in-hospital treatment. Patient willing to do nutritional supplements, so I will stop salt tabs. Continue fluid restriction. 10/22: Na 128 this am. Adequate increase, within goal. Patient not successful with nutritional supplements yesterday. Will add back salt tabs at a lower dose and loosen fluid restriction a little. Continue to encourage nutritional supplementation. Anticipate that she will likely have increased to a sodium that is adequate for discharge home by tomorrow 10/23: Sodium 127 this morning. I have increased sodium tabs to 2 g t.i.d.. Will continue with the current fluid restriction and recheck sodium this evening. Patient describes low appetite and had nausea again early this morning. I have encouraged her to use nutritional shakes release get protein in her diet. 10/24: Sodium stable at 128. Asymptomatic. D/ch home. Continue sodium tabs 2 g TID. 2L fluid restriction. Encourage protein shakes (discussed with patient and again today at discharge). Recheck BMP as outpatient in 5-7 days. (3) Acute hypokalemia: Status: Resolved Problem details: Potassium 2.7 on admission. Resolved (4) Hypothyroidism: Status: Chronic Problem details: Continue home levothyroxine (5) Essential hypertension: Status: Chronic Problem details: Continue home meds with IV metoprolol as needed (6) GERD (gastroesophageal reflux disease): Status: Chronic Problem details: Continue oral PPI (7) Pulmonary nodule less than 6 mm determined by computed tomography of lung: Status: Acute Problem details: - seen on CT 10/23/2024, 2 mm, never smoker, low risk, no follow-up needed - Discussed with patient and (8) Fever: Status: Acute Problem details: - 10/23 was associated with nausea, no other constitutional symptoms, did have elevated heart rate with fever, vancomycin and Zosyn started this morning, nothing found on imaging or UA or labs to explain fever, suspect sinusitis, discontinue vancomycin, continue Zosyn overnight and monitor, if nothing else found or declares itself, will likely send home with a few days of Augmentin. - 10/24 [place] well overnight, no return of fever. BC and UC NGTD. Augmentin for 4 more days (had 24 hours of zosyn) for probable acute sinusitis. DS: Summary Hospital Course Hospital Course: Per H&P: This is a 79-year-old white female with a longstanding history essential hypertension on a 4 drug regimen, hypothyroidism, GERD, seasonal allergies and hearing loss. She presents with a 7 day history of cough, weakness, nausea, poor oral intake and vomiting. Her had a mild illness with similar features the week prior. They tested positive for COVID-19 4 days prior to admission. She had a video appointment on October 16 with her [facility] [place] [facility] provider and paxlovid was not recommended. She continued to feel weak and the vomiting seemed to be getting worse and her weakness really became severe today and she was brought in by her to the ED. she would now be day 8 of her COVID illness. She is having a mild cough but no significant dyspnea. No fever. No abdominal pain. No diarrhea. No delirium. No headaches. She is COVID, RSV, flu vaccinated with most recent vaccines. She has never been positive for Covid. In the ER we found her sodium to be 114, her potassium was 2.7. Her absolute lymphocyte count is 580. She is hypertensive. Patient was treated for electrolyte disturbances and COVID as above. Please see diagnoses above for full details. On the day before discharge, patient had a fever with elevated heart rate and elevated white count for which blood cultures, urine analysis and urine culture and labs were obtained, but did no elucidate the cause t. CT chest abdomen and pelvis were unremarkable. Patient endorsed symptoms of acute maxillary sinusitis. She was on Zosyn for 24 hours without any return of fevers. She has transitioned over to Augmentin for discharge home. She had diarrhea for which C diff test was obtained and is negative. She is encouraged to follow-up with primary care provider for recheck of her electrolytes and to continue with fluid restriction and salt tabs. Time Spent with Patient Time attestation: Total time spent providing and/or coordinating discharge services: Exam Narrative: Exam Narrative: General: No acute distress. Awake, alert, oriented x3. No pallor. No jaundice. Oropharynx: Clear. Mucous membranes moist. Cardiovascular: Regular rate and rhythm. No murmurs, gallops, or rubs. Respiratory: Clear to auscultation bilaterally. No wheezes or crackles. Abdomen: Bowel sounds present. Soft, nondistended, nontender. No masses or hepatosplenomegaly. Const: Vital Signs, click to edit/add: Vital Signs - 24 hr 10/23/24 15:00 10/23/24 15:00 10/23/24 16:00 Temperature 98.3 F Pulse Rate [Pulse Oximeter] 78 78 Respiratory Rate 18 18 18 Blood Pressure [Le ft Arm] 153/96 H Pulse Oximetry 94 94 Oxygen Delivery Me thod Room Air Room Air 10/23/24 19:00 10/24/24 00:16 10/24/24 00:16 Temperature 98.6 F 97.7 F Pulse Rate [Pulse Oximeter] 83 88 Respiratory Rate 18 16 16 Blood Pressure [Le ft Arm] 172/102 H 170/100 H Pulse Oximetry 94 96 96 Oxygen Delivery Me thod Room Air Room Air Room Air 10/24/24 01:50 10/24/24 08:07 10/24/24 08:07 Temperature 98.0 F 98.5 F Pulse Rate [Pulse Oximeter] 85 79 Respiratory Rate 16 16 16 Blood Pressure [Le ft Arm] 167/101 H 154/98 H Pulse Oximetry 96 95 95 Oxygen Delivery Me thod Room Air Room Air Room Air DS: Data Data Completed and Pending Completed studies during hospitalization: 10/18/2024 EKG: Sinus rhythm with premature atrial complexes, 80 beats per minute, otherwise normal EKG. 10/23/2024 EKG: Normal sinus rhythm, 80 beats per minute, normal EKG. Ordering Physician: Gill Griffith M.D. Date of Service: 10/18/24 Procedure(s): XR chest 1V portable Accession Number(s): [id number] cc: Zelda Maldonado M.D.; Gill Griffith M.D.~ For Patients: As a result of the Century Cures Act, medical imaging exams and procedure reports are released immediately into your electronic medical record. You may view this report before your referring provider. If you have questions, please contact your health care provider. INDICATION: Weakness. Dyspnea. TECHNIQUE: Chest radiograph, 1 view. COMPARISON: None. FINDINGS: Cardiovascular/Mediastinum: Normal heart size. Unremarkable. Lungs: No focal consolidation. Linear band like opacification of the lungs bilaterally, likely subsegmental atelectasis and/or scarring. Airways: Trachea remains midline. Pleura: No pleural effusions or pneumothorax. Bones: No acute osseous abnormalities. Upper abdomen: Unremarkable. IMPRESSION: No acute cardiopulmonary process. Dictated by Jason Garcia MD @ 10/18/2024 8:47:29 PM (Electronically Signed) Ordering Physician: Martha Benavides M.D. Date of Service: 10/23/24 Procedure(s): CT chest abdomen pelv w con Accession Number(s): [id number] cc: Zelda Maldonado M.D.; Martha Benavides M.D.~ For Patients: As a result of the 21st Century Cures Act, medical imaging exams and procedure reports are released immediately into your electronic medical record. You may view this report before your referring provider. If you have questions, please contact your health care provider. INDICATION: Sepsis, nausea, hyponatremia, COVID positive TECHNIQUE: CT chest, abdomen and pelvis acquired 81 cc Isovue 370 IV contrast. COMPARISON: Chest radiograph 10/18/2024. FINDINGS: CHEST: Cardiovascular structures: Heart size is normal. Trace pericardial effusion, which may be physiologic. Thoracic aorta and main pulmonary artery are normal in caliber. No evidence of central or segmental pulmonary embolism. Mediastinum and bebe: No mass or adenopathy. Lungs and pleura: There is a 2 millimeter nodule in the left upper lobe (3/36). Area of scarring in the right middle lobe. Chest wall and axilla: No mass or adenopathy. Bones: Diffuse osseous demineralization. Mild degenerative disease of the thoracic spine. ABDOMEN AND PELVIS: Liver: Unremarkable. Gallbladder and bile ducts: Unremarkable. Pancreas: Unremarkable. Spleen: Unremarkable. Adrenal glands: Unremarkable. Kidneys: Unremarkable. GI tract: Small hiatal hernia. No obstruction. No significant bowel wall thickening. Vascular structures: Mild aortoiliac atherosclerosis. Lymph nodes: Unremarkable. Peritoneum/Retroperitoneum/Abdominal Wall: Unremarkable. No free air or significant free fluid. Pelvic Organs: Hysterectomy. Bones and superficial soft tissues: No acute or suspicious osseous lesions. Diffuse osseous demineralization. Moderate degenerative disease of the lumbar spine. IMPRESSION: No acute findings in the chest, abdomen or pelvis. There is a 2 millimeter pulmonary nodule in the left upper lobe. In a low risk patient, no further follow-up is indicated. In a high-risk patient, CT of the chest can be considered in 12 months to evaluate for stability. Please note that all CT scans at this facility use dose modulation, iterative reconstruction, and/or weight-based dosing when appropriate to reduce radiation dose to as low as reasonably achievable. Dictated by Mahnaz Thacker MD @ 10/23/2024 9:58:33 AM (Electronically Signed) Labs on day of discharge: Labs from last 24 hours 10/24/24 10/23/24 10/23/24 05:56 23:50 18:30 WBC 3.82 L RBC 4.35 Hgb 12.8 Hct 38.7 MCV 89 MCH 29 MCHC 33 Plt Count 249 Sodium 128 L 128 L Potassium 3.6 Chloride 96 Carbon Dioxide 25 Anion Gap 7 BUN 7 Creatinine 0.5 Estimated Creat Clear 44.10 Estimated GFR 97 Glucose 97 Calcium 8.3 L Stl C. diff Tox B Gene Negative Stl C. diff [id number] PRESUMPTIVE NEGATIVE Preliminary micro results at discharge 10/23/24 09:33 Urine Culture - Preliminary Urine,Clean Catch NO GROWTH AFTER 24 HOURS 10/23/24 05:15 Blood Culture - Preliminary Blood NO GROWTH AFTER 24 HOURS Discharge Plan Discharge Disposition: Home, Self-Care Date of Admission: 10/18/24 21:56 Attending Provider on Discharge: Martha Benavides Primary Care Provider: Zelda Maldonado Condition: Improved Anticipated Discharge Date/Time: 10/24/24 11:51 Discharge Medications: New amoxicillin-pot clavulanate 875-125 mg Tablet 1 tab PO BID 4 Days Qty: 8 0RF sodium chloride 1,000 mg Tablet,Soluble 2,000 mg PO TIDWM Qty: 120 0RF Continued atenolol 50 mg tablet 12.5 mg PO DAILY levothyroxine [Euthyrox] 75 mcg tablet 75 mcg PO DAILY omeprazole 40 mg capsule,delayed release(DR/EC) 40 mg PO DAILY hydrochlorothiazide 25 mg tablet 25 mg PO DAILY amlodipine 5 mg tablet 5 mg PO DAILY latanoprost 0.005 % drops 1 drp ophthalmic (eye) HS lisinopril 40 mg tablet 40 mg PO DAILY calcipotriene 0.005 % ointment 1 applic topical BID PRN fluocinonide 0.05 % cream 1 applic topical BID PRN Metamucil 3.4 gram/5.4 gram powder 1 tbsp PO DAILY Rx Instructions: mix into at least 8 oz of water or juice before administering Discharge Orders: Discharge Order (Routine); Ordered 10/24/24 Ordered By: Martha Benavides Patient Education: Amoxicillin/Clavulanate Potassium (By mouth), Sodium Chloride (By mouth), COVID-19 (Coronavirus Disease 2019) (DC), COVID-19: Slow the Coronavirus Spread (DC) Activity Level: No Restrictions Discharge Diet: Regular and 2000 ml Fluid Restriction Follow Up Appointments: Zelda Maldonado MD [Primary Care Provider] - (Patient will need to schedule appointment, with doctor for Wednesday or Wednesday to have a lab draw for BMP. ) Forms: [employer] Info Instructions
--- NOTE | 2024-10-27 16:53 | PC.NURSE ---
Critical Lab taken: Positive(+) Blood Cultures, aerobic bottle positive (+); smear showed Gram (+) Cocci. Contacted pt's due to pt not answering her phone. Notified , Marvin, that Hospitalist would like her to come in for repeat Blood Cultures. Pt received IV antibiotics in hospital with PO antibiotic to be taken at home. Per Marvin, pt began having diarrhea and stopped Oral medication Wednesday on the advice of PCP. Pt will be returning this evening for repeat Blood Cultures. Clinic Account was built for lab draw.
== END 2024-10-24 14:13 | disposition home or self-care (01) | DRG 178 ==
LOC: ED 21:25 → MEDSURG 21:58
PROVIDERS: Family Medicine; Internal Medicine; Physician Assistant; Student in an Organized Health Care Education/Training Program; Admitting Provider Family Medicine; Emergency Provider Family Medicine; PCP Family Medicine; Visit Provider Family Medicine
DX: U07.1 COVID-19 (principal); E87.1 Hypo-osmolality and hyponatremia; E87.6 Hypokalemia; I10 Essential (primary) hypertension; E03.9 Hypothyroidism, unspecified; K21.9 Gastro-esophageal reflux disease without esophagitis; J30.2 Other seasonal allergic rhinitis; R50.9 Fever, unspecified; R91.1 Solitary pulmonary nodule
CPT/HCPCS: 36415; 71045; 71260; 74177; 80048; 80053; 80076; 81001; 82728; 82803; 83605; 83615; 83735; 84132; 84295; 84300; 84443; 84484; 85025; 85027; 85379; 86140; 87040; 87086; 87426; 87493; 87631; 93005; 94664; 94761; 99285; A9270; J0780; J1650; J2405; J2470; J2543; J2597; J3372; J3475; J3480; J7030; J7050; J7070; Q9967; S5010

== ENCOUNTER 2024-10-27 17:01 | Outpatient (CLI) | payer MEDICARE, OTHER, SELFPAY | END 2024-10-27 17:02 | disposition home or self-care (01) | LOC: LAB 17:02 | PROVIDERS: PCP Family Medicine; Visit Provider Family Medicine | DX: A49.8 Other bacterial infections of unspecified site (principal) | CPT/HCPCS: 36415; 87040 ==